=== PATIENT | female | born 1990 | race Caucasian/White ===

== ENCOUNTER 2021-05-23 09:16 | Emergency (ER) | payer MEDICAID, SELFPAY ==
[2021-05-23 09:24] VITALS: BP 96/68; PULSE 70; RESP 18; TEMP 36.2; O2SAT 100
--- NOTE | 2021-05-23 09:25 | ED.FEMALEGU ---
HPI - Female Genitourinary General Chief complaint: Vaginal Bleeding Stated complaint: pg bleed Time Seen by Provider: 05/23/21 09:19 Source: patient Mode of arrival: ambulatory Limitations: no limitations History of Present Illness HPI Narrative: Patient 31-year-old female who presents to the ED with report of vaginal bleeding. Patient reports she is currently around 6 weeks , with positive test at home last week. She has had light bleeding intermittently throughout her thus far, especially after intercourse. Over the past 3 days, she has had persistent light vaginal bleeding. She states she has been using a panty liner and has not required more than this for the bleeding, but does have bleeding every time she wipes. She also reports having daily nausea and intermittent lower abdominal cramping, which became worse today, prompting her evaluation to the ED. Patient was seen at [place] [facility] yesterday and had an ultrasound done which did show an intrauterine . Records are being requested for this. Patient states she was also told she had a UTI yesterday and was prescribed Macrobid. She picked it up from the pharmacy today but has not started this yet. She denies any urinary symptoms currently. She also denies any back pain, chest pain, shortness of breath, fever, chills, rectal bleeding. No complications with previous and , child born vaginally. Related Data Allergies Allergy/AdvReac Type Severity Reaction Status Date / Time No Known Allergies Allergy Verified 05/23/21 09:27 Review of Systems Review of Systems: CONSTITUTIONAL: Denies fever, chills. CARDIOVASCULAR: Denies chest pain. RESPIRATORY: Denies dyspnea. GASTROINTESTINAL: Reports lower ABD cramping, N/V. Denies rectal bleeding, diarrhea. GENITOURINARY: Reports vaginal bleeding. Denies dysuria or hematuria. MUSCULOSKELETAL: Denies back pain. NEUROLOGIC: Denies headache. All systems reviewed & are unremarkable except as noted in HPI and below PMFSH Past Medical History Medical History (Updated 05/23/21 @ 14:29 by Sugey Mcgarry PA-C) No pertinent past medical history Surgical History Surgical History (Updated 05/23/21 @ 14:29 by Sugey Mcgarry PA-C) No pertinent past surgical history Family History Family History (Updated 05/22/16 @ 23:56 by DOCTOR UNKNOWN) Father Family history of heart disease in male family member before age 55, Onset Age: 56 Patient's father is Social History Social History (Updated 05/23/21 @ 14:29 by Sugey Mcgarry PA-C) Smoking status: Never smoker Alcohol intake: never Exam Narrative: GENERAL: Well appearing, well-nourished, non-toxic, in no acute distress. HEAD: Normocephalic, atraumatic. NECK: Supple. No adenopathy, no masses. RESPIRATORY: Airway patent, respirations nonlabored. Clear to auscultation bilaterally, no rales, rhonchi, wheezing. CARDIOVASCULAR: Regular rate and rhythm without murmurs, rubs, or gallops. Peripheral pulses 2+ and equal bilaterally. ABDOMINAL: Soft, nontender, nondistended, no hepatosplenomegaly. Normoactive BS. PELVIC: External genitalia unremarkable. Mild erythema surrounding cervical os, which does not appear open. Minimal bleeding present. No clots. Normal physiologic discharge present. No significant CMT. MUSCULOSKELETAL: Moves all extremities. Strength/ROM intact without gross deformities or TTP. No edema. No calf tenderness. SKIN: Warm, dry, normal color. No rashes. NEURO: A&O X3. Speech clear. Cranial nerves II-XII grossly intact. Steady gait. No ataxic movements. PSYCHIATRIC: Appropriate mood and affect. Normal interaction. Course Consultations Consultation #1: Discussed case with Dr. Bennie DAMON target protection specialist. Recommended pelvic rest, antibiotics for UTI, and patient to call office to make follow-up appointment. Date: 05/23/21 Vital Signs Vital signs: Vital Signs Temperature 97.1 F L 05/23/21 09:24 Pulse
[2021-05-23 09:45] LABS: Basophils Percent Auto 0.6 % (0.2-1.2); Eosinophils Absolute Auto 0.2 K/mm3 (0-0.3); Eosinophils Percent Auto 2.4 % (0-4.4); Hemoglobin 12.5 g/dL (12.0-15.0); Immature Granulocyte Absolute 0.01 K/mm3 (0.00-0.031); Immature Granulocyte Percent A 0.1 % (0-0.5); Lymphocytes Absolute Auto 2.31 K/mm3 (0.9-3.2); Lymphocytes Percent Auto 34.2 % (18.3-44.2); Mean Corpuscular HGB Conc 32.9 g/dl (32-36); Mean Corpuscular Hemoglobin 30.5 pg (26-34); Mean Corpuscular Volume 92.7 fl (80-100); Mean Platelet Volume 11.5 fl (7.4-10.4); Monocytes Absolute Auto 0.6 K/mm3 (0.1-0.6); Monocytes Percent Auto 8.6 % (2.6-8.5); Neutrophils Absolute Auto 3.7 K/mm3 (1.3-6.7); Neutrophils Percent Auto 54.1 % (45.5-73.1); Platelet Count Result 255 k/mm3 (150-375); Red Cell Distribution Width 12.4 % (11.5-14.5); White Blood Count 6.8 K/mm3 (4.5-10.0)
[2021-05-23 09:59] LABS: Alanine Aminotransferase 14 U/L (4-35); Albumin Level 4.1 g/dL (3.5-5.1); Alkaline Phosphatase 79 U/L (38-126); Anion Gap 7 mmol/L (8-16); Aspartate Amino Transferase 19 U/L (14-36); Bilirubin,Total 0.3 mg/dL (0.2-1.3); Blood Urea Nitrogen 9 mg/dL (7-17); Calcium 8.7 mg/dL (8.4-10.2); Carbon Dioxide 23 mmol/L (22-30); Chloride 107 mmol/L (98-107); Estimated CRCL calculation 103 ml/min; Estimated Glomerular Filt Rate > 60; Glucose 96 mg/dL (65-110); Potassium 3.8 mmol/L (3.4-5.0); Sodium 137 mmol/L (137-145)
[2021-05-23 10:07] LABS: Add Urine Microscopic? YES; Appearance Urine Cloudy (Clear); Bilirubin Urine Negative (Negative); Blood Urine 3+ (Negative); Color Urine Amber (Yellow); Glucose Urine UA Negative (Negative); Ketones Urine Negative (Negative); Leukocyte Esterase Ur 3+ LEU/UL (Negative); Mucus Urine Moderate /lpf; Nitrate Urine Negative (Negative); Protein Urine Negative (Negative); Specific Grav Ur 1.023 (1.001-1.035); Squamous Epithelial Cell Urine Many /hpf (Few); Urobilinogen Urine Negative mg/dL (<2.0); WBC Urine >75 /hpf
[2021-05-23] MEDS: ONDANSETRON INJ 4 MG/2 ML VIAL IV PUSH (10:07)
[2021-05-23] MEDS: SODIUM CHLORIDE 0.9% IV 1,000 ML 999 ML IV CONT (10:08)
[2021-05-23 10:50] VITALS: BP 116/59; PULSE 66
[2021-05-23 10:58] VITALS: BP 104/58; PULSE 68
[2021-05-23 11:00] VITALS: BP 109/68; PULSE 67
[2021-05-23 13:23] VITALS: BP 115/76; PULSE 92; RESP 16; O2SAT 100
== END 2021-05-23 13:25 | disposition home or self-care (01) ==
PROVIDERS: Physician Assistant; Emergency Provider Emergency Medicine
DX: O20.0 Threatened abortion (principal); O26.891 Other specified pregnancy related conditions, first trimester; R82.71 Bacteriuria; Z3A.01 Less than 8 weeks gestation of pregnancy
CPT/HCPCS: 36415; 80053; 81001; 84702; 85025; 85461; 87086; 96361; 96374; 99284; J2405; J7030

== ENCOUNTER 2021-06-16 16:14 | Outpatient (CLI) | payer MEDICAID, SELFPAY ==
--- NOTE | ~2021-06-16 | US_ITS ---
EXAMINATION: US OB <= 14 weeks fetus DATE: 06/16/2021 17:24 INDICATION: Missed , first trimester TECHNIQUE: Real-time pelvic transabdominal and transvaginal ultrasound was performed. COMPARISON: None. FINDINGS: The uterus measures 10.5 x 6.7 x 8.9 cm. There is an intrauterine gestational sac. There i s a 12 mm x 3 mm hypoechoic area adjacent to the gestational sac. A yolk sac is identified. hea rt motion is identified measuring 166 beats per minute (bpm) by M-mode Doppler. The crown rump length measures 2.9 cm , which correlates with an estimated gestational age of 9 weeks and 5 day(s) ( +/-) 6 day(s). The right ovary measures 2.8 x 1.6 x 1.7 cm. The left ovary measures 3.2 x 1.5 x 1.3 cm. There is nor mal vascular flow in the ovaries. There is no free fluid in the pelvis. IMPRESSION: 1. Live intrauterine with an estimated gestational age of 9 weeks and 5 day(s) (+/-) 6 day( s) and an estimated delivery date of 01/14/2022. 2. Small subchorionic hematoma. Reviewed, dictated and finalized at location A. IMPRESSION: 1. Live intrauterine with an estimated gestational age of 9 weeks and 5 day(s) (+/-) 6 day(s) and an estimated delivery date of 01/14/2022. 2. Small subchorionic hematoma.
== END 2021-06-16 16:15 | disposition home or self-care (01) ==
PROVIDERS: Visit Provider Obstetrics & Gynecology
DX: O02.1 Missed abortion (principal); Z3A.09 9 weeks gestation of pregnancy
CPT/HCPCS: 76801

== ENCOUNTER 2021-07-25 18:17 | Emergency (ER) | payer OTHER, SELFPAY ==
[2021-07-25 18:24] VITALS: BP 125/58; PULSE 98; RESP 16; TEMP 36.5; O2SAT 100
[2021-07-25 20:55] VITALS: BP 123/76; PULSE 83; RESP 16; O2SAT 100
--- NOTE | 2021-07-25 21:09 | ED.FEMALEGU ---
HPI - Female Genitourinary General Chief complaint: Vaginal Bleeding Stated complaint: 16 wks vaginal bleeding Time Seen by Provider: 07/25/21 20:54 Source: patient History of Present Illness HPI Narrative: Patient presents with vaginal bleeding. For she has had some cramping and clots for the past couple days she was monitoring her symptoms but her symptoms were not getting better so she came to the ER tonight she is concerned about her child. She was seen a month ago for similar symptoms diagnosed with a subchorionic hemorrhage as well as a UTI. She recovered well from that encounter symptoms started 2 days ago. Denies any lightheadedness or dizziness denies any chest pain or shortness of breath denies any fevers, chills, nausea, vomiting denies any dysuria. Related Data Home Medications Medication Instructions Recorded Confirmed vitamins-iron fumarate 65 1 tablet PO DAILY 06/13/21 06/13/21 mg iron-folic acid 1 mg tablet Allergies Allergy/AdvReac Type Severity Reaction Status Date / Time No Known Allergies Allergy Verified 07/25/21 20:58 Review of Systems Review of Systems: CONSTITUTIONAL: Denies fever, chills, or sweats. EYES: Denies visual changes, redness, or discharge. ENT: Denies rhinorrhea, congestion, sore throat, or otalgia. CARDIOVASCULAR: Denies chest pain, palpitations, or edema. RESPIRATORY: Denies cough or dyspnea. GASTROINTESTINAL: Denies nausea, vomiting, or diarrhea. GENITOURINARY: Denies dysuria or hematuria. SKIN: Denies rash or itching. MUSCULOSKELETAL: Denies back pain, joint pain, or myalgia. NEUROLOGIC: Denies headache, numbness, dizziness, or weakness. PSYCHIATRIC: Denies anxiety or depression. All systems reviewed & are unremarkable except as noted in HPI and below PMFSH Past Medical History Medical History Bipolar disorder Depression No pertinent past medical history Surgical History Surgical History No pertinent past surgical history Family History Family History Father Family history of heart disease in male family member before age 55, Onset Age: 56 Patient's father is Social History Social History Smoking status: Former smoker Tobacco type: cigarettes Smoking end date: 05/14/21 Alcohol intake: never Substance use: former Substance use type: marijuana Last use: 05/14/2021 Additional living arrangements comments: 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 HEAD: Normocephalic, atraumatic. EYES: PERRLA and EOMI. ENT: Nares clear, no rhinorrhea or epistaxis. Mucous membranes moist. NECK: Supple. No masses. No JVD CHEST: Clear to auscultation. No respiratory distress. No wheezes rales or rhonchi HEART: Regular rate and rhythm. No murmur heard. Normal peripheral pulses. ABDOMEN: Soft, nontender, nondistended EXTREMITIES: Normal range of motion. No edema. SKIN: Warm, dry, no rash. NEURO: No focal deficits. Alert and oriented x3. PSYCH: Normal mood and affect. Course Reevaluation(s) Reevaluation #1: Patient was offered a pelvic exam, blood work, and UA for further evaluation of her symptoms. Patient reports she has blood work scheduled for Wednesday of next week. Patient feels as if she can have her test done then she also declined a pelvic exam. With a reassuring heart rate patient overall looks clinically well prior Rh status is positive and continued outpatient monitoring of her symptoms is reasonable she does have follow-up wit
[2021-07-25 21:23] VITALS: PULSE 74; RESP 16; O2SAT 100
== END 2021-07-25 21:24 | disposition home or self-care (01) ==
PROVIDERS: Emergency Provider Emergency Medicine
DX: O20.0 Threatened abortion (principal); Z3A.16 16 weeks gestation of pregnancy; Z87.891 Personal history of nicotine dependence
CPT/HCPCS: 99282

== ENCOUNTER 2021-09-09 12:22 | Outpatient (CLI) | payer OTHER, SELFPAY ==
[2021-09-09 12:39] LABS: Basophils Percent Auto 0.2 % (0.2-1.2); Eosinophils Absolute Auto 0.1 K/mm3 (0-0.3); Eosinophils Percent Auto 1.3 % (0-4.4); Hematocrit 33.6 % (37.0-47.0); Hemoglobin 10.9 g/dL (12.0-15.0); Immature Granulocyte Absolute 0.02 K/mm3 (0.00-0.031); Immature Granulocyte Percent A 0.2 % (0-0.5); Lymphocytes Percent Auto 20.4 % (18.3-44.2); Mean Corpuscular HGB Conc 32.4 g/dl (32-36); Mean Corpuscular Hemoglobin 29.7 pg (26-34); Mean Corpuscular Volume 91.6 fl (80-100); Mean Platelet Volume 11.2 fl (7.4-10.4); Monocytes Absolute Auto 0.5 K/mm3 (0.1-0.6); Monocytes Percent Auto 6.1 % (2.6-8.5); Neutrophils Percent Auto 71.8 % (45.5-73.1); Platelet Count Result 219 k/mm3 (150-375); Red Blood Count 3.67 M/mm3 (4.2-5.4); Red Cell Distribution Width 12.2 % (11.5-14.5); White Blood Count 8.3 K/mm3 (4.5-10.0)
[2021-09-09 13:30] LABS: HIV 1/2 Ab P24 Ag Result Negative (Negative)
[2021-09-09 14:00] LABS: Hepatitis B Surface Antigen Negative (Negative); Rubella IgG Antibody 20.9 IU/ML
[2021-09-10 10:22] LABS: Rapid Plasma Reagin Non-Reactive (NonReactive)
[2021-09-12 19:52] LABS: CMV IgG Antibody <0.60 U/mL (<0.60)
[2021-09-22 07:27] LABS: CF Result NEGATIVE (NEGATIVE); Ethnicity NG
== END 2021-09-09 12:23 | disposition home or self-care (01) ==
LOC: ANHLAB 12:23
PROVIDERS: Visit Provider Obstetrics & Gynecology
DX: Z34.90 Encounter for supervision of normal pregnancy, unspecified, unspecified trimester (principal); Z3A.00 Weeks of gestation of pregnancy not specified
CPT/HCPCS: 36415; 81220; 85025; 86592; 86644; 86703; 86747; 86762; 86787; 86850; 86900; 86901; 87086; 87088; 87340; G0432

== ENCOUNTER 2021-09-27 14:22 | Emergency (ER) | payer OTHER, SELFPAY ==
[2021-09-27 15:15] VITALS: BP 110/54; PULSE 107; RESP 16; TEMP 37.7; O2SAT 99
--- NOTE | 2021-09-27 15:25 | ED.URI ---
HPI - URI/Sore Throat General Chief Complaint: Upper Respiratory Infection Stated Complaint: uri Time Seen by Provider: 09/27/21 15:25 History of Present Illness HPI Narrative: Vanda Gage is a 31 yo female who is 25 weeks and reports an exposure to COVID. Her son was sick when he was returning from his her ex-'s house while he is recovered she is started developing congestion and fatigue she has upper back pain and is just not feeling well, throat is also sore-started yesterday Related Data Home Medications Medication Instructions Recorded Confirmed vitamins-iron fumarate 65 1 tablet PO DAILY 06/13/21 09/27/21 mg iron-folic acid 1 mg tablet lamotrigine 25 mg tablet 25 mg PO DAILY 09/27/21 09/27/21 Allergies Allergy/AdvReac Type Severity Reaction Status Date / Time No Known Allergies Allergy Verified 09/27/21 14:33 Review of Systems Review of Systems: CONSTITUTIONAL: Denies fever, chills, sweats. EYES: Denies visual changes, redness, discharge. ENT: Denies rhinorrhea, has congestion, has sore throat, bilateral otalgia. CARDIOVASCULAR: Denies chest pain, palpitations, edema. RESPIRATORY: Denies dyspnea, wheezing, cough GASTROINTESTINAL: Denies abdominal pain, nausea, vomiting, diarrhea. GENITOURINARY: Denies dysuria, hematuria, abnormal discharge SKIN: Denies rash or itching. NEUROLOGIC: Denies numbness, or focal weakness. PSYCHIATRIC: Denies anxiety or depression. 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 There is no relevant family history pertinent to the presenting complaint. Exam Narrative: GENERAL: This is a well-nourished, well-developed patient, in mild distress. Low-grade fever HEAD: normocephalic, atraumatic. EYES:Sclera clear/white. Vision is grossly intact. EARS: External ears normal, auditory canals erythema with right worse than the left and without drainage. Hearing grossly intact. NOSE: External nose normal with nasal discharge, nares without redness, no rhinorrhea. THROAT: Mucous membranes moist, posterior pharynx erythema NECK: Neck supple, non-tender CARDIOVASCULAR: Tachycardic rate and rhythm without murmurs, gallops, or rubs. RESPIRATORY: Clear to auscultation. Breath sounds equal bilaterally. No wheezes, rales, or rhonchi. GASTROINTESTINAL: Abdomen soft, non-tender, enlarged to appropriate size for 25-week SKIN: warm, intact with no suspicious lesions or rash, good texture and turgor. NEURO: awake, alert, and oriented to person, place and time. There were no obvious focal neurologic abnormalities. Steady gait EXTREMITIES: Normal range of motion. BACK: Nontender without deformity Course Course Emergency Course: Patient comes with sore throat and potential exposure to COVID Strep done- negative COVID done- rapid negative; sent f
[2021-09-27 19:02] LABS: SARS-CoV-2 RNA PCR Negative
== END 2021-09-27 16:00 | disposition home or self-care (01) ==
PROVIDERS: Emergency Provider Nurse Practitioner
DX: Z20.822 Contact with and (suspected) exposure to COVID-19 (principal); O99.512 Diseases of the respiratory system complicating pregnancy, second trimester; Z3A.25 25 weeks gestation of pregnancy; J02.9 Acute pharyngitis, unspecified; J34.89 Other specified disorders of nose and nasal sinuses; O90.89 Other complications of the puerperium, not elsewhere classified; R05.9 Cough, unspecified; O99.342 Other mental disorders complicating pregnancy, second trimester; F31.9 Bipolar disorder, unspecified
CPT/HCPCS: 87081; 87426; 87880; 99213; C9803; G0463; U0003; U0005

== ENCOUNTER 2021-11-22 09:39 | Outpatient (CLI) | payer OTHER, SELFPAY ==
[2021-11-22 11:00] LABS: Basophils Percent Auto 0.3 % (0.2-1.2); Eosinophils Absolute Auto 0.2 K/mm3 (0-0.3); Eosinophils Percent Auto 1.9 % (0-4.4); Hematocrit 33.2 % (37.0-47.0); Immature Granulocyte Absolute 0.05 K/mm3 (0.00-0.031); Immature Granulocyte Percent A 0.6 % (0-0.5); Lymphocytes Absolute Auto 2.14 K/mm3 (0.9-3.2); Lymphocytes Percent Auto 23.9 % (18.3-44.2); Mean Corpuscular HGB Conc 33.1 g/dl (32-36); Mean Corpuscular Hemoglobin 29.8 pg (26-34); Mean Platelet Volume 10.4 fl (7.4-10.4); Monocytes Absolute Auto 0.6 K/mm3 (0.1-0.6); Monocytes Percent Auto 6.1 % (2.6-8.5); Neutrophils Percent Auto 67.2 % (45.5-73.1); Platelet Count Result 244 k/mm3 (150-375); Red Blood Count 3.69 M/mm3 (4.2-5.4)
[2021-11-22 11:18] LABS: Glucose 1 Hour PP 50gm Dose 176 mg/dL
[2021-11-22 11:56] LABS: HIV 1/2 Ab P24 Ag Result Negative (Negative)
== END 2021-11-22 09:40 | disposition home or self-care (01) ==
PROVIDERS: Visit Provider Obstetrics & Gynecology
DX: Z34.90 Encounter for supervision of normal pregnancy, unspecified, unspecified trimester (principal); Z3A.00 Weeks of gestation of pregnancy not specified
CPT/HCPCS: 36415; 82947; 85025; 86703; G0432

== ENCOUNTER 2022-01-07 06:43 | Inpatient (IN) | payer OTHER, SELFPAY ==
[2022-01-07] VITALS (78 sets, daily range): BP systolic 81–137; BP diastolic 31–88; PULSE 25–191; RESP 16–18; TEMP 36.2–37.4; O2SAT 69–100
[2022-01-07] MEDS: LACTATED RINGERS 1,000 ML 125 ML IV CONT ×3 (07:32→11:31)
[2022-01-07] MEDS: OXYTOCIN 30 UNITS/NS 500 ML 30 UNITS/500 ML BAG IV CONT (07:34)
[2022-01-07 07:51] LABS: Basophils Percent Auto 0.3 % (0.2-1.2); Eosinophils Absolute Auto 0.1 K/mm3 (0-0.3); Eosinophils Percent Auto 0.5 % (0-4.4); Hematocrit 33.5 % (37.0-47.0); Hemoglobin 10.8 g/dL (12.0-15.0); Immature Granulocyte Absolute 0.06 K/mm3 (0.00-0.031); Immature Granulocyte Percent A 0.6 % (0-0.5); Lymphocytes Absolute Auto 2.05 K/mm3 (0.9-3.2); Lymphocytes Percent Auto 20.5 % (18.3-44.2); Mean Corpuscular HGB Conc 32.2 g/dl (32-36); Mean Corpuscular Hemoglobin 29.1 pg (26-34); Mean Corpuscular Volume 90.3 fl (80-100); Mean Platelet Volume 11.7 fl (7.4-10.4); Monocytes Absolute Auto 0.6 K/mm3 (0.1-0.6); Monocytes Percent Auto 5.8 % (2.6-8.5); Neutrophils Absolute Auto 7.3 K/mm3 (1.3-6.7); Neutrophils Percent Auto 72.3 % (45.5-73.1); Platelet Count Result 176 k/mm3 (150-375); Red Blood Count 3.71 M/mm3 (4.2-5.4); Red Cell Distribution Width 13.8 % (11.5-14.5)
--- NOTE | 2022-01-07 08:03 | LDADM ---
This patient, Vanda Gage, was admitted to Labor/Delivery/Recovery 109 on 01/07/22 at 06:43. Plans for labor, pain management and were discussed with patient. Patient/family oriented to hospital policies and general routines including ID bracelet, bed and alarms, visiting hours, pain management, procedures, bathroom and other care routines, personal items, smoking policy, room service/diet and guest tray routines, security routines, and visiting hours. Patient/Family are encouraged to report perceived risks to care and to ask questions if they do not understand what they are told or what they should do. See OBIX for further documentation.
--- NOTE | 2022-01-07 08:56 | WPDANESEPP ---
Anes - Eval Pre Procedure Procedure: labor epidural Date/Time: 01/07/22 08:56 Pre Op Diagnosis: IOL Patient Data Age: 31 Gender: F Height: Weight: Last Vital Signs Pulse 92 01/07/22 08:54 BP 96/52 L 01/07/22 08:54 Pulse Ox 100 01/07/22 08:54 O2 Del Method Room Air 01/07/22 07:30 Allergies Allergy/AdvReac Type Severity Reaction Status Date / Time No Known Allergies Allergy Verified 01/06/22 17:13 Home Medications Medication Instructions Recorded Confirmed Type vitamins-iron fumarate 65 1 tablet PO DAILY 06/13/21 01/06/22 History mg iron-folic acid 1 mg tablet ferrous sulfate 325 mg (65 mg 325 mg PO DAILY #90 tabs 09/09/21 01/06/22 Rx iron) tablet Laboratory Tests 01/07/22 01/07/22 01/07/22 07:23 07:23 07:23 WBC 10.0 K/mm3 K/mm3 (4.5-10.0) RBC 3.71 M/mm3 L M/mm3 (4.2-5.4) Hgb 10.8 g/dL L g/dL (12.0-15.0) Hct 33.5 % L % (37.0-47.0) MCV 90.3 fl fl (80-100) MCH 29.1 pg pg (26-34) MCHC 32.2 g/dl g/dl (32-36) RDW 13.8 % % (11.5-14.5) Plt Count 176 k/mm3 k/mm3 (150-375) MPV 11.7 fl H fl (7.4-10.4) Immature Gran % (Auto) 0.6 % H % (0-0.5) Neut % (Auto) 72.3 % % (45.5-73.1) Lymph % (Auto) 20.5 % % (18.3-44.2) [place] % (Auto) 5.8 % % (2.6-8.5) Eos % (Auto) 0.5 % % (0-4.4) Baso % (Auto) 0.3 % % (0.2-1.2) Lymph # (Auto) 2.05 K/mm3 K/mm3 (0.9-3.2) [place] # (Auto) 0.6 K/mm3 K/mm3 (0.1-0.6) Eos # (Auto) 0.1 K/mm3 K/mm3 (0-0.3) Baso # (Auto) 0.0 K/mm3 K/mm3 (0.0-0.1) Abs Immat Gran (auto) 0.06 K/mm3 H K/mm3 (0.00-0.031) Absolute Neuts (auto) 7.3 K/mm3 H K/mm3 (1.3-6.7) Absolute Nucleated RBC 0.0 K/mm3 K/mm3 (0.0-0.012) Nucleated RBC % 0.0 % % (0.0-0.2) RPR Pending Blood Type O Positive Antibody Screen Negative Patient hx anesthesia problems: none Family hx anesthesia problems: none Results Review: All pre-operative results and documents have been reviewed as part of the pre-operative evaluation. [facility] Past Medical History Medical History (Updated 11/25/21 @ 17:13 by Taylor Jacinto [facility]) Abnormal glucose tolerance in Bipolar disorder Depression No pertinent past medical history Surgical History Surgical History No pertinent past surgical history Family History Family History Father Family history of heart disease in male family member before age 55, Onset Age: 56 Patient's father is Social History Social History Smoking status: Former smoker Tobacco type: cigarettes Smoking end date: 05/14/21 Alcohol intake: never Substance use: former Substance use type: marijuana Last use: 05/14/2021 Additional living arrangements comments: 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
[2022-01-07 10:17] LABS: Glucose Point of Care 70 mg/dl (65-105)
[2022-01-07] MEDS: CALCIUM CARBONATE (TUMS) 500 MG (200 MG ELEMENTAL) PO (11:28)
--- NOTE | 2022-01-07 12:54 | P.PCNOB_ITS ---
OB - Delivery Note Procedure Induction method: AROM and Per Pitocin Protocol Delivery monitor: External FHT and External Uterine Route of delivery: Episiotomy description: None Laceration Description: Vaginal (Bilateral) Delivery repair: chromic Specimen: No Quantitative Blood Loss (ml): 350 Anesthesia type: Epidural Disposition: Floor Complications: none Narrative: patient prepped in usual manner for this procedure. Maternal expulsive efforts readily delivered vertex with nuchal cord noted and readily reduced. Rest baby was delivered with cord clamped and cut and the rest the placenta delivered as well. Uterus was well contracted. Cervix vagina vulva were not inspected with bilateral vaginal wall lacerations noted. These were both approximated using 2-0 chromic in a running interlocking manner with good approximation of tissue and hemostasis achieved. At this point procedure was considered terminated with immediate postoperative condition of mother baby both excellent. [place] Baby Weeks of gestation at delivery: 39 Infant gender: Male Weight (pounds): 8 Weight (ounces): 1 presentation: vertex Placenta delivery description: Spontaneous Cord Vessel Description: 3 Vessels and Nuchal Cord score one minute: 9 score five minutes: 9 AMG Delivery Billing Delivery Delivery: Delivery Charge
--- NOTE | 2022-01-07 12:54 | WPDHPUPDATE1 ---
History and Physical Update Update Date/Time: 01/07/22 12:54 History and Physical has been reviewed, including an updated exam of the patient. There are NO changes in the patient's condition. Risks, benefits, and alternatives have been discussed and questions answered. Patient agrees to proceed with procedure.
--- NOTE | 2022-01-07 12:54 | WPDOBADMIT ---
Obstetrics - Admit Note Admission Note: record reviewed. No pertinent additions to the history and/or any subsequent changes in the physical findings that are not consistent with the expected course of the were found. Additions to the history and/or subsequent changes in the physical findings follow. None.
[2022-01-07] MEDS: IBUPROFEN 600 MG TABLET PO ×2 (14:47→23:07)
[2022-01-07] MEDS: BENZOCAINE 20% AER SPR (*SP) 56 GM CAN 1 SPRAY TOPICAL (14:48)
[2022-01-07] MEDS: WITCH HAZEL 40 PADS 1 PAD TOPICAL (14:48)
--- NOTE | 2022-01-07 15:40 | OBPPTRN ---
Patient transferred to post room # 290 via wheelchair. Support person present. Oriented to unit, room, information board, rooming in, admission packet and security measures. Patient verbalizes understanding.
[2022-01-08 03:56] VITALS: BP 99/53; PULSE 81; RESP 18; TEMP 36.7; O2SAT 99
[2022-01-08 04:32] LABS: Hematocrit 31.8 % (37.0-47.0); Hemoglobin 10.1 g/dL (12.0-15.0)
[2022-01-08 08:00] VITALS: BP 134/74; PULSE 81; RESP 18; TEMP 36.2; O2SAT 96
[2022-01-08] MEDS: TETANUS,DIPHTHERIA,AC PERTUSSIS ADULT (0.5 ML) BOOSTRIX IM (08:30)
[2022-01-08] MEDS: MULTIVIT/MIN/PREN/FOL AC/IRON TABLET 1 TAB PO (08:30)
--- NOTE | 2022-01-08 10:13 | PM.OBDSVD ---
DS: Admitting Diagnosis Discharge Date 01/08/2022 Admitting Diagnosis OB - DS: Summary OB Procedures : None OB Procedures Intrapartum: Spontaneous Vag Delivery OB Procedures: : None Time Spent with Patient Time attestation: Total time spent providing and/or coordinating discharge services: DS: Data Data Completed and Pending Labs on day of discharge: Labs from last 24 hours 01/08/22 01/07/22 03:19 10:14 Hgb 10.1 L Hct 31.8 L POC Capillary Glucose 70 Discharge Plan Discharge Discharging Clinician: Yaniv Calderón Patient Disposition: Home, Self-Care Activity: as tolerated Diet: as tolerated Patient Instructions: Antibiotic Form Stand Alone Forms: General Discharge Information Follow-up/Referrals: Yaniv Calderón MD [Physician] - 3 Weeks Discharge Medications: New ibuprofen 600 mg Tablet 600 mg PO Q6H PRN (Reason: Cramping) Qty: 30 0RF Continued vit-iron fum-folic ac 65 mg iron- 1 mg tablet 1 tablet PO DAILY ferrous sulfate 325 mg (65 mg iron) tablet 325 mg PO DAILY Qty: 90 2RF Rx Instructions: can take any iron that insurance will cover Date of admission: 01/07/22 06:43 Primary Care Provider: PHYSICIAN,WATER CONSERVATION SPECIALIST Admitting Provider: Yaniv Calderón Attending physician on admission: Yaniv Calderón Condition: Stable
--- NOTE | 2022-01-08 10:51 | WPDANLDPN2 ---
Anes-Prog Note L&D Date/Time: 01/08/22 10:51 Comfortable throughout: labor and delivery Neuraxial method: epidural Epidural/Spinal procedure site: clean & non-tender Neuro status: Neuro function grossly intact. Cardiovascular status: normal Respiratory status: normal Airway patency: baseline Mental status: baseline Post-Op hydration status: normal Vital Signs: Last Vital Signs Temp 36.2 C L 01/08/22 08:00 Pulse 81 01/08/22 08:00 Resp 18 01/08/22 08:00 BP 134/74 01/08/22 08:00 Pulse Ox 96 01/08/22 08:00 O2 Del Method Room Air 01/08/22 08:34 Pain score (VAS): 02/24 I/O: Intake & Output 01/07/22 01/08/22 01/08/22 23:59 07:59 15:59 Intake Total 1000 Balance 1000 Post-procedural complaints: none Patient feedback: Patient satisfied with anesthetic care.
[2022-01-08 11:27] VITALS: BP 142/66; PULSE 98; RESP 18; TEMP 36.9; O2SAT 99
[2022-01-08] MEDS: IBUPROFEN 600 MG TABLET PO (11:27)
[2022-01-09 09:04] LABS: Rapid Plasma Reagin Non-Reactive (NonReactive)
[2022-01-09 09:33] VITALS: BP 119/64; PULSE 88; RESP 20; TEMP 36.7; O2SAT 98
== END 2022-01-08 14:30 | disposition home or self-care (01) | DRG 560 ==
LOC: ANHLDR 06:46 → ANHOB2 16:51
PROVIDERS: Admitting Provider Obstetrics & Gynecology; Visit Provider Obstetrics & Gynecology
DX: O69.81X0 Labor and delivery complicated by cord around neck, without compression, not applicable or unspecified (principal); O71.4 Obstetric high vaginal laceration alone; Z37.0 Single live birth; Z3A.39 39 weeks gestation of pregnancy; O99.814 Abnormal glucose complicating childbirth
CPT/HCPCS: 36415; 82948; 85014; 85018; 85025; 86592; 86850; 86900; 86901; 90715; A9270; J2590; J2795; J7120

== ENCOUNTER 2022-03-04 11:37 | Emergency (ER) | payer OTHER, SELFPAY ==
--- NOTE | ~2022-03-04 | XR_ITS ---
Clinical Indication: Cough PA and lateral views of the chest: Comparison: None Findings: The lungs are clear, without evidence of focal consolidation or pleural effusion. Cardiome diastinal silhouette is within normal limits. Bones and soft tissues are unremarkable. Impression: Normal chest. Reviewed, dictated and finalized at location . 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
--- NOTE | 2022-03-04 11:41 | ED.URI ---
HPI - URI/Sore Throat General Chief Complaint: Upper Respiratory Infection Stated Complaint: Cough Time Seen by Provider: 03/04/22 11:45 Source: patient Mode of arrival: ambulatory Limitations: no limitations History of Present Illness HPI Narrative: Vanda is a 32-year-old female patient presenting to the clinic today with complaints of a productive cough with green/ brown phlegm x2 days. Also notes that she feels short of breath. She denies any fever or chills. MD elicited complaint: cough ( Greenish brown phlegm) and other ( shortness of breath) Related Data Allergies Allergy/AdvReac Type Severity Reaction Status Date / Time No Known Allergies Allergy Verified 03/04/22 11:43 Review of Systems Review of Systems: Pertinent positives per HPI. Patient denies any fever, chills, rash, headache, visual changes, dizziness, chest pain, palpitations, nausea, vomiting, diarrhea, constipation, abdominal pain, or any urinary issues. 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 There is no relevant family history pertinent to the patient complaint. Exam Narrative: General: Well-developed, obese, in no apparent distress Head: Normocephalic, atraumatic Eyes: Pupils equally round and reactive to light bilaterally, EOM intact, sclera and conjunctive clear, no discharge, lids normal Ears: TMs intact and clear, ear canals clear, no drainage, grossly hearing normal. Nose: Nares patent, clear nasal discharge, no inflammation, no sinus tenderness. Mouth: Oral pharynx without lesions or masses, good dentition, MMM. Neck: Supple, trachea midline, no enlargement of anterior or posterior cervical nodes, no thyroid masses or goiter palpable. Cardio: Regular rate and rhythm, s1 and s2 normal, no murmur appreciated. Resp: Inspiratory and expiratory wheezing with decreased air flow, no rhonchi, rales, or rubs Course Course Emergency Course: Portions of this record may have been created with voice recognition software. Level of Care: Express Care Visit Vital Signs Vital signs: Vital Signs Temperature 37.0 C 03/04/22 11:45 Pulse Rate 71 03/04/22 11:45 Respiratory Rate 16 03/04/22 11:45 Blood Pressure 128/80 03/04/22 11:45 Pulse Oximetry 99 03/04/22 11:45 Oxygen Delivery Room Air 03/04/22 11:45 Temperature 37.0 C 03/04/22 11:45 Pulse Rate 71 03/04/22 11:45 Respiratory Rate 16 03/04/22 11:45 Blood Pressure 128/80 03/04/22 11:45 Pulse Oximetry 99 03/04/22 11:45 Oxygen Delivery Room Air 03/04/22 11:45 Vital signs reviewed MDM - URI/Sore Throat MDM Narrative Medical decision making narrative: At the time of visit patient is resting comfortably on exam table. Patient has i
[2022-03-04 11:45] VITALS: BP 128/80; PULSE 71; RESP 16; TEMP 37; O2SAT 99
[2022-03-04] MEDS: IPRATROPIUM BR 0.02% INH SOLN 0.5 MG/2.5 ML VIAL INHALATION (11:59)
[2022-03-04] MEDS: ALBUTEROL SULFATE NEB 2.5 MG/3 ML INH INHALATION (11:59)
== END 2022-03-04 12:38 | disposition home or self-care (01) ==
PROVIDERS: Emergency Provider Nurse Practitioner Family
DX: J40 Bronchitis, not specified as acute or chronic (principal); Z87.891 Personal history of nicotine dependence
CPT/HCPCS: 71046; 94640; 99213; G0463

== ENCOUNTER 2022-12-08 09:01 | Emergency (ER) | payer OTHER, SELFPAY ==
[2022-12-08 09:14] VITALS: BP 113/68; PULSE 76; RESP 16; TEMP 36.8; O2SAT 99
--- NOTE | 2022-12-08 09:29 | ED.GENADULT ---
HPI - General Adult General Chief complaint: Extremity Injury, Upper Stated complaint: Right Neck/Shoulder Pain Time Seen by Provider: 12/08/22 09:29 Source: patient, RN notes reviewed and old records reviewed Mode of arrival: ambulatory Limitations: no limitations History of Present Illness HPI narrative: 32-year-old female presents to the [facility] with complaints of pain. States that she fell Oct 15, 9 days ago. Pain continues to the right upper back Pain along the trapezius muscle, upper scapular area. Denies midline tenderness. Full range of motion of bilateral shoulders. No bruising or swelling noted to the area. No tenderness to the shoulder. No clavicle pain. Denies chest pain or shortness of breath. Onset (ago): day(s) (9) Related Data Home Medications Medication Instructions Recorded Confirmed fluoxetine 20 mg capsule mg 12/08/22 Allergies Allergy/AdvReac Type Severity Reaction Status Date / Time No Known Allergies Allergy Verified 12/08/22 09:19 Review of Systems Review of Systems: All systems reviewed & are unremarkable except as noted in HPI and below Constitutional: Constitutional: Reports no additional constitutional complaints Eyes: Eyes: Reports no additional eye complaints ENT: Reports system reviewed and no additional complaints, except as documented Cardiovascular: Cardiovascular: Reports no additional cardiovascular complaints, Denies chest pain and Denies dyspnea Respiratory: Respiratory: Reports no additional respiratory complaints, Denies chest congestion, Denies cough and Denies dyspnea Gastrointestinal: Gastrointestinal: Reports no additional gastrointestinal complaints, Denies abdominal pain, Denies nausea and Denies vomiting Musculoskeletal: Musculoskeletal: Reports as per HPI and Reports back pain Integumentary/Breasts: Skin/Breast: Reports system reviewed and no additional complaints, except as docu Neurologic: Reports system reviewed and no additional complaints, except as documented Psychiatric: Psychiatric: Reports no additional psychiatric complaints Allergic/Immunologic: Allergic/Immunologic: Reports no additional allergic/immunologic complaints [facility] Past Medical History Medical History Abnormal glucose tolerance in Bipolar disorder Depression No pertinent past medical history Surgical History Surgical History No pertinent past surgical history Family History Family History Father Family history of heart disease in male family member before age 55, Onset Age: 56 Patient's father is Social History Social History Smoking status: Former smoker Tobacco type: cigarettes Smoking end date: 05/14/21 Alcohol intake: never Substance use: former Substance use type: marijuana Last use: 05/14/2021 Living arrangements: other Additional living arrangements comments: Occupation/Education: other 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 There is no relevant family history pertinent to the patient complaint. Exam Const: General: cooperative, healthy appearing, comfortable, no acute distress, well developed, alert and well nourished Nutritional Appearance: well nourished and obese Orientation/consciousness: patient oriented x3 Limitations: no limitations HENMT: Head: normal to inspection Ears: hearing grossly normal bilaterally and external ears normal Face/Nose/Sinus:
== END 2022-12-08 09:55 | disposition home or self-care (01) ==
PROVIDERS: Emergency Provider Nurse Practitioner
DX: S29.012A Strain of muscle and tendon of back wall of thorax, initial encounter (principal); W19.XXXA Unspecified fall, initial encounter; F32.A Depression, unspecified; Z87.891 Personal history of nicotine dependence
CPT/HCPCS: 99213; G0463

== ENCOUNTER 2023-08-18 03:04 | Emergency (ER) | payer OTHER, SELFPAY ==
[2023-08-18] VITALS (25 sets, daily range): BP systolic 110–149; BP diastolic 56–128; PULSE 60–89; RESP 12–28; TEMP 36.3; O2SAT 96–100
--- NOTE | ~2023-08-18 | US_ITS ---
EXAMINATION: US OB <=14 wk fetus w TV DATE: 08/18/2023 08:32 INDICATION: Abdominal pain and positive , presumptively first trimester. TECHNIQUE: Real-time pelvic ultrasound utilizing both a transvaginal and transabdominal probe was pe rformed. The interpreting radiologist was not present for the study. COMPARISON: None. FINDINGS: The uterus measures 12.3 x 4.5 x 6.6 cm. 5 mm nabothian cyst at the cervix. There is an intrauterine gestational sac with double decidual sign and suggestion of a tiny subtle yolk sac. No pole nell ntified likely due to early stage of . The sac diameter measures 7.6 mm, which correlates wi th an estimated gestational age of 5 weeks and 4 days. The right ovary measures 2.4 x 2.3 x 2.2 exclusive of a 1.9 cm anechoic right ovarian cyst. Vascular flow seen on the ovary which appears to outline a subtle 1.6 cm hypoechoic likely corpus luteum cyst. The left ovary measures 2.0 x 1.9 x 1.6 cm. Pressures was also identified in the left ovary on color Doppler. There is no free fluid in the pelvis. IMPRESSION: 1. Single intrauterine gestational sac with no discernible pole most likely due to early stage of although differential includes failed . Correlate with serial beta-hCG levels. 2. Gestational age by ultrasound of 5 weeks 5 day(s) +/- 4 day(s) with ultrasound estimated date of delivery (HAL) of 04/15/2024. Reviewed, dictated and finalized at location B. IMPRESSION: 1. Single intrauterine gestational sac with no discernible pole most like ly due to early stage of although differential includes failed pregna ncy. Correlate with serial beta-hCG levels. 2. Gestational age by ultrasound of 5 weeks 5 day(s) +/- 4 day(s) with ultraso und estimated date of delivery (HAL) of 04/15/2024.
--- NOTE | ~2023-08-18 | US_ITS ---
EXAMINATION: US renal BI DATE: 08/18/2023 08:25 INDICATION: Flank pain. Hematuria. TECHNIQUE: Multiple ultrasound grayscale images of the kidneys were obtained. COMPARISON: None. FINDINGS: The right kidney measures 10.1 x 5.3 x 5.1 cm. The left kidney measures 10.5 x 4.7 x 5.3 cm. The kidn eys demonstrate normal parenchymal echogenicity. There is no hydronephrosis. The bladder is normal. IMPRESSION: 1. Normal kidneys. No hydronephrosis. Reviewed, dictated and finalized at location A.
--- NOTE | 2023-08-18 03:14 | ECG_ITS ---
Test Date: 2023-08-18 03:14:55 Measurements Intervals [place] Rate: 74 P: 54 ME: 154 QRS: 31 QRSD: 125 T: 33 QT: 407 QTc: 454 Interpretive Statements SINUS RHYTHM INTRAVENTRICULAR CONDUCTION DELAY BORDERLINE ECG No previous ECG available for comparison Electronically Signed On 08-18-2023 06:32:30 CDT by Chris Loja D.O.
--- NOTE | 2023-08-18 03:15 | ED.ABDPAIN ---
HPI - Abdominal Pain General Chief Complaint: Abdominal Pain <Michelle Diaz MD - Last Filed: 08/20/23 00:34> Stated Complaint: n/v <Michelle Diaz MD - Last Filed: 08/20/23 00:34> Time Seen by Provider: 08/18/23 03:06 <Michelle Diaz MD - Last Filed: 08/20/23 00:34> History of Present Illness HPI narrative: Patient is a 33-year-old female with history of depression, bipolar here with abdominal pain and flank pain. Patient states her symptoms began yesterday morning. She noted some right-sided lower back pain as well as nausea, vomiting, anterior abdominal pain. She states that the pain was able to self resolve and she was able to eat throughout the day yesterday. Her symptoms began again around 130 this morning. She endorsed lower abdominal pain as well as left-sided flank pain, nausea and vomiting. Since arriving to the ER she did have a large bowel movement and notes that her abdominal pain has largely subsided. She denies any fever or chills. She denies any cough or congestion. No chest pain. No prior history of abdominal surgeries. No prior nephrolithiasis or UTI per patient. She states that her last menstrual period was about a month ago and is due to start her cycle any time now. <Michelle Diaz MD - Last Filed: 08/20/23 00:34> Related Data Home Medications: Home Medications Medication Instructions Recorded Confirmed fluoxetine 20 mg capsule mg 12/08/22 <Michelle Diaz MD - Last Filed: 08/20/23 00:34> Allergies/Adverse Reactions: Allergies Allergy/AdvReac Type Severity Reaction Status Date / Time No Known Allergies Allergy Verified 12/08/22 09:19 <Michelle Diaz MD - Last Filed: 08/20/23 00:34> Review of Systems Review of Systems: All systems reviewed & are unremarkable except as noted in HPI and below <Michelle Diaz MD - Last Filed: 08/20/23 00:34> PMFSH Past Medical History Medical History: Medical History Abnormal glucose tolerance in Bipolar disorder Depression No pertinent past medical history <Michelle Diaz MD - Last Filed: 08/20/23 00:34> Surgical History Surgical History: Surgical History No pertinent past surgical history <Michelle Diaz MD - Last Filed: 08/20/23 00:34> Family History Family History: Family History Father Family history of heart disease in male family member before age 55, Onset Age: 56 Patient's father is <Michelle Diaz MD - Last Filed: 08/20/23 00:34> Social History Social History: Social History Smoking status: Former smoker Tobacco type: cigarettes Smoking end date: 05/14/21 Alcohol intake: never Substance use: former Substance use type: marijuana Last use: 05/14/2021 Living arrangements: other Additional living arrangements comments: Occupation/Education: other 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 HEAD: Normocephalic, atraumatic. EYES: PERRLA and EOMI. ENT: Nares clear. Mucous membranes moist. NECK: Supple. CHEST: Clear to auscultation. No respiratory distress. HEART: Regular rate and rhythm. Normal peripheral pulses. ABDOMEN: Soft, nontender, nondistended. No CVA tenderness bilaterally EXTREMITIES: Normal range of motion. No edema. SKIN: Warm, dry, no rash. NEURO: No focal deficits. Alert and oriented x3. PSYCH: Normal mood and affect. <Michelle Diaz MD - Last Filed: 08/20/23 00:34> Course
[2023-08-18] MEDS: MORPHINE SULFATE (*CRX) 4 MG/ML INJ IV PUSH (03:25)
[2023-08-18] MEDS: ONDANSETRON INJ 4 MG/2 ML VIAL IV PUSH (03:26)
[2023-08-18 03:39] LABS: Basophils Percent Auto 0.3 % (0.2-1.2); Eosinophils Absolute Auto 0.2 K/mm3 (0-0.3); Eosinophils Percent Auto 1.9 % (0-4.4); Hematocrit 37.6 % (37.0-47.0); Hemoglobin 12.8 g/dL (12.0-15.0); Immature Granulocyte Absolute 0.03 K/mm3 (0.00-0.031); Immature Granulocyte Percent A 0.3 % (0-0.5); Lymphocytes Absolute Auto 2.77 K/mm3 (0.9-3.2); Lymphocytes Percent Auto 28.9 % (18.3-44.2); Mean Corpuscular Hemoglobin 29.4 pg (26-34); Mean Corpuscular Volume 86.4 fl (80-100); Mean Platelet Volume 11.7 fl (7.4-10.4); Monocytes Absolute Auto 0.7 K/mm3 (0.1-0.6); Monocytes Percent Auto 6.9 % (2.6-8.5); Neutrophils Absolute Auto 5.9 K/mm3 (1.3-6.7); Neutrophils Percent Auto 61.7 % (45.5-73.1); Platelet Count Result 285 k/mm3 (150-375); Red Blood Count 4.35 M/mm3 (4.2-5.4); Red Cell Distribution Width 13.3 % (11.5-14.5); White Blood Count 9.6 K/mm3 (4.5-10.0)
[2023-08-18 03:48] LABS: Alanine Aminotransferase 22 U/L (6-35); Albumin Level 4.6 g/dL (3.5-5.1); Alkaline Phosphatase 112 U/L (38-126); Anion Gap 13 mmol/L (4-12); Aspartate Amino Transferase 22 U/L (14-36); Bilirubin,Total 0.4 mg/dL (0.2-1.3); Blood Urea Nitrogen 10 mg/dL (7-17); Calcium 9.5 mg/dL (8.4-10.2); Carbon Dioxide 19 mmol/L (22-30); Chloride 106 mmol/L (98-107); Estimated CRCL calculation 95 ml/min; Estimated Glomerular Filt Rate > 60; Glucose 136 mg/dL (65-110); Lipase 66 U/L (23-300); Potassium 3.1 mmol/L (3.4-5.0); Sodium 138 mmol/L (137-145)
[2023-08-18] MEDS: LACTATED RINGERS 1,000 ML 999 ML IV CONT (03:54)
[2023-08-18 04:19] LABS: Appearance Urine Cloudy (Clear); Bacteria Urine Rare /hpf; Bilirubin Urine Negative (Negative); Blood Urine 3+ (Negative); Color Urine Yellow (Yellow); Glucose Urine UA Negative (Negative); Ketones Urine 3+ mg/dL (Negative); Leukocyte Esterase Ur 1+ LEU/UL (Negative); Nitrate Urine Negative (Negative); Non Pathogenic Casts 0-2; Protein Urine Trace mg/dL (Negative); RBC Urine >100 /hpf (0-2); Specific Grav Ur 1.015 (1.001-1.035); Squamous Epithelial Cell Urine Occasional /hpf (Few)
[2023-08-18 04:38] LABS: Add Urine Microscopic? YES
[2023-08-18 04:53] LABS: Pregnancy On Board Control Positive; Urine Pregnancy Test Positive
--- NOTE | 2023-08-18 07:29 | PC.NURSE ---
Pt to u/s via w/c at this time.
== END 2023-08-18 09:24 | disposition home or self-care (01) ==
PROVIDERS: Emergency Provider Student in an Organized Health Care Education/Training Program
DX: O23.41 Unspecified infection of urinary tract in pregnancy, first trimester (principal); N39.0 Urinary tract infection, site not specified; Z3A.01 Less than 8 weeks gestation of pregnancy; Z87.891 Personal history of nicotine dependence
CPT/HCPCS: 36415; 76775; 76801; 76817; 80053; 81001; 81025; 83690; 84702; 85025; 86850; 86900; 86901; 87086; 87088; 93005; 96361; 96365; 96375; 99284; J0696; J2270; J2405; J7120

== ENCOUNTER 2023-09-11 19:50 | Emergency (ER) | payer OTHER, SELFPAY ==
[2023-09-11 20:06] VITALS: BP 126/63; PULSE 77; RESP 15; TEMP 36.9; O2SAT 100
[2023-09-11 21:00] VITALS: BP 125/51; PULSE 89; RESP 16; O2SAT 99
--- NOTE | 2023-09-11 21:08 | ED.PREGNANCY ---
HPI - General Chief complaint: Vaginal Bleeding Stated complaint: vaginal bleeding, 8-9 weeks Time Seen by Provider: 09/11/23 21:07 Source: patient Mode of arrival: ambulatory Limitations: no limitations History of Present Illness HPI Narrative: Vanda is a 33-year-old female patient presenting to the ER today with complaints of vaginal bleeding during . She reports she is about 9 weeks . Was seen on August 19 and had a ultrasound completed that showed that she was about 5 weeks and 5 days +/-4 days. She seen Dr. Calderón on August 31 and he plans to do a repeat US next week. she reports she has filled 1 pad with blood this morning however the bleeding has slowed down. Did notice some clots. States she did wipe while in the emergency room after urinating and noticed some blood on the tissue paper. . Related Data Allergies Allergy/AdvReac Type Severity Reaction Status Date / Time No Known Allergies Allergy Verified 09/11/23 19:51 Review of Systems Review of Systems: Pertinent positives per HPI. Patient denies any fever, chills, rash, headache, visual changes, dizziness, cough, runny nose, sore throat, shortness of breath, chest pain, palpitations, nausea, vomiting, diarrhea, constipation, or any urinary issues. [facility] Past Medical History Medical History Abnormal glucose tolerance in Bipolar disorder Depression No pertinent past medical history Threatened Surgical History Surgical History No pertinent past surgical history Family History Family History Father Family history of heart disease in male family member before age 55, Onset Age: 56 Patient's father is Social History Social History Smoking status: Former smoker Tobacco type: cigarettes Second hand tobacco smoke exposure: No Smoking end date: 05/14/21 Alcohol intake: never Substance use: former Substance use type: marijuana Last use: 05/14/2021 Do You Feel Safe in your Home?: Yes Lack of Transportation: No Lack of Food: Sometimes True Current Housing: I Have Housing Concerned About Future Housing: No Difficulty Paying Gas/Electric Bills: YES Difficulty Paying for Meds: No Currently Unemployed: No Education: Associate Degree Difficulty w/ Childcare or Family Care: No Living arrangements: other Additional living arrangements comments: now engaged Occupation/Education: occupation 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 There is no relevant family history pertinent to the patient complaint. Exam Narrative: General: Well-developed, morbidly obese, in no apparent distress Head: Normocephalic, atraumatic. Cardio: Regular rate and rhythm, s1 and s2 normal, no murmur appreciated. Resp: Clear to auscultation bilaterally, no rhonchi, rales, wheezing or rubs. Abdomen: Soft, pliable, bowel sounds present in all quadrants, non-tender to palpation, no CVAT tenderness. : Pelvic exam performed with ( Susan RN) at bedside. Verbal consent obtained from patient. Normal external female genitalia without lesions or masses, Urinary meatus: patent without discharge, Vagina: No lesions, masses, or discharge, Cervix: pink without mass, lesions, scant bloody discharge around the cervical os Course Course Emergency Course: Portions of this record may have been created with voice
[2023-09-11 21:40] VITALS: BP 130/69; PULSE 78; RESP 16; O2SAT 99
[2023-09-11 22:01] LABS: Appearance Urine Clear (Clear); Bacteria Urine Rare /hpf; Bilirubin Urine Negative (Negative); Blood Urine 2+ (Negative); Color Urine Yellow (Yellow); Glucose Urine UA Negative (Negative); Ketones Urine Negative (Negative); Leukocyte Esterase Ur Trace LEU/UL (Negative); Nitrate Urine Negative (Negative); Non Pathogenic Casts 0-2; Protein Urine Negative (Negative); RBC Urine 0-2 /hpf (0-2); Specific Grav Ur 1.021 (1.001-1.035); Squamous Epithelial Cell Urine Few /hpf (Few); Urobilinogen Urine 0.2 mg/dL (<2.0); pH Urine 5.5 (5.0-9.0)
[2023-09-11 22:12] LABS: Add Urine Microscopic? YES
[2023-09-11 22:17] LABS: Basophils Percent Auto 0.4 % (0.2-1.2); Eosinophils Absolute Auto 0.2 K/mm3 (0-0.3); Eosinophils Percent Auto 2.3 % (0-4.4); Hematocrit 34.9 % (37.0-47.0); Hemoglobin 11.6 g/dL (12.0-15.0); Immature Granulocyte Absolute 0.03 K/mm3 (0.00-0.031); Immature Granulocyte Percent A 0.3 % (0-0.5); Lymphocytes Absolute Auto 2.47 K/mm3 (0.9-3.2); Lymphocytes Percent Auto 25.5 % (18.3-44.2); Mean Corpuscular HGB Conc 33.2 g/dl (32-36); Mean Corpuscular Hemoglobin 30.5 pg (26-34); Mean Corpuscular Volume 91.8 fl (80-100); Mean Platelet Volume 11.4 fl (7.4-10.4); Monocytes Absolute Auto 0.6 K/mm3 (0.1-0.6); Monocytes Percent Auto 5.8 % (2.6-8.5); Neutrophils Absolute Auto 6.4 K/mm3 (1.3-6.7); Neutrophils Percent Auto 65.7 % (45.5-73.1); Platelet Count Result 239 k/mm3 (150-375); Red Cell Distribution Width 13.1 % (11.5-14.5); White Blood Count 9.7 K/mm3 (4.5-10.0)
[2023-09-11] MEDS: ONDANSETRON INJ 4 MG/2 ML VIAL IV PUSH (22:17)
[2023-09-11 22:18] VITALS: BP 103/82; PULSE 80; RESP 16; O2SAT 100
[2023-09-11 22:25] LABS: Alanine Aminotransferase 14 U/L (6-35); Albumin Level 3.9 g/dL (3.5-5.1); Alkaline Phosphatase 82 U/L (38-126); Anion Gap 11 mmol/L (4-12); Aspartate Amino Transferase 16 U/L (14-36); Bilirubin,Total 0.2 mg/dL (0.2-1.3); Blood Urea Nitrogen 11 mg/dL (7-17); Calcium 8.8 mg/dL (8.4-10.2); Carbon Dioxide 26 mmol/L (22-30); Chloride 100 mmol/L (98-107); Estimated CRCL calculation 127 ml/min; Estimated Glomerular Filt Rate > 60; Glucose 110 mg/dL (65-110); Potassium 3.3 mmol/L (3.4-5.0); Sodium 137 mmol/L (137-145)
[2023-09-11 22:31] LABS: INR 0.9; Prothrombin Time 12.7 Seconds (11.1-14.7)
[2023-09-11 22:32] LABS: Partial Thromboplastin Time 26.3 Seconds (22.3-36.8)
[2023-09-11 23:23] VITALS: BP 124/64; PULSE 77; RESP 15; O2SAT 100
== END 2023-09-11 23:24 | disposition home or self-care (01) ==
PROVIDERS: Student in an Organized Health Care Education/Training Program; Emergency Provider Nurse Practitioner Family
DX: O20.9 Hemorrhage in early pregnancy, unspecified (principal); O09.521 Supervision of elderly multigravida, first trimester; Z3A.09 9 weeks gestation of pregnancy; Z87.891 Personal history of nicotine dependence
CPT/HCPCS: 36415; 80053; 81001; 84702; 85025; 85461; 85610; 85730; 86850; 86900; 86901; 87086; 87088; 96374; 99284; J2405

== ENCOUNTER 2023-09-29 06:56 | Observation (INO) | payer OTHER, SELFPAY ==
[2023-09-29] VITALS (28 sets, daily range): BP systolic 90–125; BP diastolic 30–68; PULSE 58–75; RESP 15–18; TEMP 36.4–37.2; O2SAT 91–100; BMI 42.4
--- NOTE | ~2023-09-29 | US_ITS ---
US_ABDRLQ_US Ordering provider: Andreina Oh MD History: . , kidney stone, appendix . Comparison: None. FINDINGS: Graded compression with a linear ultrasound probe of the right lower quadrant of the abdomen was perf ormed. appendix is not visualized. IMPRESSION: Appendix is not visualized. Clinical correlation advised. Reviewed, dictated and finalized at location A.
--- NOTE | ~2023-09-29 | US_ITS ---
EXAMINATION: US renal BI DATE: 09/29/2023 09:56 INDICATION: Right flank pain. First trimester of . TECHNIQUE: Multiple ultrasound grayscale images of the kidneys were obtained. COMPARISON: Ultrasound kidneys 08/18/2023 FINDINGS: The right kidney measures 11.3 x 6.5 x 5.9 cm. The left kidney measures 11.0 x 4.3 x 3.6 cm. The kidn eys demonstrate normal parenchymal echogenicity. There is mild right hydronephrosis. The bladder is n ormal. IMPRESSION: 1. Mild right hydronephrosis, new from 08/18/2023. Reviewed, dictated and finalized at location A.
--- NOTE | ~2023-09-29 | US_ITS ---
FIRST TRIMESTER ULTRASOUND 09/29/2023 14:08 CDT Ordering provider: Lee Ann Avery MD History: . Spotting in . Comparison: None. FINDINGS: INTRAUTERINE GESTATIONAL SAC: Present. And measures 5.2 cm. YOLK SAC: Not seen. POLE: Present. Measures 5.2 cm equivalent to 11 weeks and 6 days. heart rate is 153 bpm. Last menstrual age is 11 weeks and 4 days. HAL is April 15, 2024. Ultrasound age is 11 weeks and 6 days. HAL is April 13, 2024. UTERUS: The uterus measures 15x 7.3x 10.8 cm in length which is within normal limits. No myometrial m asses. FREE FLUID: None. OVARIES: Normal in size with the right measuring 2.5 x 1.8 x 2.3 cm and the left measuring 2.5x 1.7x 2.3 cm. Doppler flow is demonstrated within both ovaries. ADNEXAL MASSES: None. IMPRESSION: Intrauterine uterine with single live fetus of 11 weeks and 6 days. HAL is April 13. Reviewed, dictated and finalized at location A. IMPRESSION: Intrauterine uterine with single live fetus of 11 weeks and 6 days. E DD is April 13, 2024.
--- NOTE | 2023-09-29 07:16 | ED.GENADULT ---
HPI - General Adult General Chief complaint: Abdominal Pain Stated complaint: 12 weeks , abdominal pain/back pain Time Seen by Provider: 09/29/23 07:06 Source: patient History of Present Illness HPI narrative: 33 years old white female came to the emergency room with sudden onset of suprapubic pain radiating to the right flank area started 3:00 a.m. associated with nausea and multiple vomiting. Patient is 12 weeks , denies any vaginal bleeding or discharge patient is healthy otherwise denies any history of abdominal surgery or kidney stone. Related Data Allergies Allergy/AdvReac Type Severity Reaction Status Date / Time No Known Allergies Allergy Verified 09/11/23 19:51 Review of Systems Review of Systems: All systems reviewed & are unremarkable except as noted in HPI and below PMFSH Past Medical History Medical History Abnormal glucose tolerance in Bipolar disorder Depression No pertinent past medical history Threatened Surgical History Surgical History No pertinent past surgical history Family History Family History Father Family history of heart disease in male family member before age 55, Onset Age: 56 Patient's father is Social History Social History Smoking status: Former smoker Tobacco type: cigarettes Second hand tobacco smoke exposure: No Smoking end date: 05/14/21 Alcohol intake: never Substance use: former Substance use type: marijuana Last use: 05/14/2021 Do You Feel Safe in your Home?: Yes Lack of Transportation: No Lack of Food: Sometimes True Current Housing: I Have Housing Concerned About Future Housing: No Difficulty Paying Gas/Electric Bills: YES Difficulty Paying for Meds: No Currently Unemployed: No Education: Associate Degree Difficulty w/ Childcare or Family Care: No Living arrangements: other Additional living arrangements comments: now engaged Occupation/Education: occupation 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 Gender identity (if verbalized by the patient): Female Sexual Orientation (if Verbalized by the Patient): Straight or Heterosexual Spiritual care concerns: No Exam Narrative: General appearance: Well-developed, well-nourished Skin: Normal color Head: Normocephalic, nontraumatic Eyes: Clear conjunctiva ENT: Oropharynx normal, ears normal, nose normal Neck: Supple, nontender Chest and respiratory: Airway patent, no respiratory distress, no accessory muscle use Heart: Regular rate/rhythm Abdomen: Soft, slight tenderness right flank, no organomegaly, quiet bowel sounds Vascular: Normal peripheral pulses, normal capillary refill. Musculoskeletal: Normal range of motion, nontender back Neurologic: Alert and oriented ?3, CIRCUS TRAINER is normal as tested, no gross motor deficit Course Consultations Consultation #1: Dr. lopez Admit to OBGYN Date: 09/29/23 Time: 12:10 Consultation #2: dr salgado Date: 09/29/23 Time: 12:10 Vital Signs Vital signs: Vital Signs Temperature 36.8 C 09/29/23 06:59 Pulse Rate 75 09/29/23 06:59 Respiratory Rate 15 09/29/23 06:59 Blood Pressure 121/68 09/29/23 06:59 Pulse Oximetry 100 09/29/23 06:59 Oxygen Delivery Room Air 09/29/23 06:59 Temperature 36.8 C 09/29/23 06:59 Pulse Rate 75 09/29/23 06:59 Respiratory Rate 15 09/29/23 06:59 Blood Pressure 121/68 09/29/23 06:59 Pulse Oximetr
[2023-09-29 07:20] LABS: BEDSIDEPREGUCG Positive
[2023-09-29 07:37] LABS: Basophils Percent Auto 0.3 % (0.2-1.2); Eosinophils Absolute Auto 0.1 K/mm3 (0-0.3); Eosinophils Percent Auto 0.9 % (0-4.4); Hematocrit 38.5 % (37.0-47.0); Hemoglobin 12.9 g/dL (12.0-15.0); Immature Granulocyte Absolute 0.03 K/mm3 (0.00-0.031); Immature Granulocyte Percent A 0.4 % (0-0.5); Lymphocytes Absolute Auto 1.44 K/mm3 (0.9-3.2); Lymphocytes Percent Auto 19.1 % (18.3-44.2); Mean Corpuscular HGB Conc 33.5 g/dl (32-36); Mean Corpuscular Hemoglobin 30.4 pg (26-34); Mean Corpuscular Volume 90.6 fl (80-100); Mean Platelet Volume 11.4 fl (7.4-10.4); Monocytes Absolute Auto 0.4 K/mm3 (0.1-0.6); Monocytes Percent Auto 5.3 % (2.6-8.5); Neutrophils Absolute Auto 5.6 K/mm3 (1.3-6.7); Platelet Count Result 253 k/mm3 (150-375); Red Blood Count 4.25 M/mm3 (4.2-5.4); Red Cell Distribution Width 12.9 % (11.5-14.5); White Blood Count 7.6 K/mm3 (4.5-10.0)
[2023-09-29] MEDS: SODIUM CHLORIDE 0.9% IV 1,000 ML 999 ML IV CONT (07:37)
[2023-09-29] MEDS: ONDANSETRON INJ 4 MG/2 ML VIAL IV PUSH ×3 (07:38→19:50)
[2023-09-29] MEDS: MORPHINE SULFATE (*CRX) 4 MG/ML INJ (07:38)
[2023-09-29] MEDS: MORPHINE SULFATE (*CRX) 4 MG/ML INJ IV PUSH ×2 (07:40→08:30)
[2023-09-29 07:41] LABS: Add Urine Microscopic? YES; Appearance Urine Cloudy (Clear); Bacteria Urine 3+ /hpf; Bilirubin Urine Negative (Negative); Blood Urine 2+ (Negative); Color Urine Yellow (Yellow); Glucose Urine UA Negative (Negative); Ketones Urine Trace mg/dL (Negative); Leukocyte Esterase Ur 1+ LEU/UL (Negative); Nitrate Urine Negative (Negative); Non Pathogenic Casts 0-2; Protein Urine 1+ mg/dL (Negative); RBC Urine 51-100 /hpf (0-2); Specific Grav Ur 1.025 (1.001-1.035); Squamous Epithelial Cell Urine Many /hpf (Few); Urobilinogen Urine 0.2 mg/dL (<2.0); WBC Urine 21-50 /hpf (0-3)
[2023-09-29 07:48] LABS: Alanine Aminotransferase 14 U/L (6-35); Albumin Level 4.2 g/dL (3.5-5.1); Alkaline Phosphatase 96 U/L (38-126); Anion Gap 12 mmol/L (4-12); Aspartate Amino Transferase 18 U/L (14-36); Bilirubin,Total 0.3 mg/dL (0.2-1.3); Blood Urea Nitrogen 10 mg/dL (7-17); Calcium 9.1 mg/dL (8.4-10.2); Carbon Dioxide 20 mmol/L (22-30); Chloride 104 mmol/L (98-107); Estimated CRCL calculation 110 ml/min; Estimated Glomerular Filt Rate > 60; Glucose 126 mg/dL (65-110); Lipase 50 U/L (23-300); Potassium 3.5 mmol/L (3.4-5.0); Sodium 136 mmol/L (137-145)
--- NOTE | 2023-09-29 12:34 | WPDURCON ---
Assessment and Plan Assessment and plan (1) Hydronephrosis: Code(s): N13.30 - Unspecified hydronephrosis Status: Acute Assessment and Plan: Mild right hydronephrosis in setting of right flank/back pain. Discussed that this could possibly be indicative of a small kidney stone or may be physiologic change due to . Given normal creatinine, normal WBC, and lack of fever, no indication for acute urologic intervention. If her pain becomes more severe or if she develops fever, would recommend repeat renal US to assess for worsening hydronephrosis. Discussed possibility of right ureteral stent placement with routine stent exchanges if worsening hydro, though no indication for that at this time. (2) Abnormal urinalysis: Code(s): R82.90 - Unspecified abnormal findings in urine Status: Acute Assessment and Plan: UA slightly abnormal but no bothersome urinary symptoms. Urine culture is pending. Continue empiric antibiotics while awaiting urine culture results. (3) : Code(s): Z34.90 - Encounter for supervision of normal , unspecified, unspecified trimester Status: Acute Assessment and Plan: OB evaluation Urology Consult Note HPI Date Seen: 09/29/23 Requesting Physician: Lee Ann Avery MD Primary Care Provider: Yaniv Calderón MD Consult Narrative Narrative: Vanda Gage is a 33 year old female with no prior urologic history who is 12 weeks . She awoke this morning with diffuse abdominal and back pain. She presented to the ER with these complaints and upon arrival, reports her pain settled in her right back and flank/ She had associated nausea and vomiting as well as sweats. She denies fever or chills. Upon arrival, her vital signs were stable and she was afebrile. WBC normal at 7.6. Creatinine 0.7. UA slightly abnormal with 1+ leukocytes, 2+ blood, 3+ bacteria, however many squamous cells. A renal ultrasound completed showed mild right hydronephrosis. At the time of my evaluation, she is resting comfortably. She denies dysuria or hematuria. She endorses 7/10 right sided back pain. Pain initially improved with morphine but now has returned. Review of Systems Review of Systems: All systems reviewed & are unremarkable except as noted in HPI and below PMFSH Past Medical History Medical History Abnormal glucose tolerance in Bipolar disorder Depression No pertinent past medical history Threatened Surgical History Surgical History No pertinent past surgical history Family History Family History Father Family history of heart disease in male family member before age 55, Onset Age: 56 Patient's father is Social History Social History Smoking status: Former smoker Tobacco type: cigarettes Second hand tobacco smoke exposure: No Smoking end date: 05/14/21 Alcohol intake: never Substance use: former Substance use type: marijuana Last use: 05/14/2021 Do You Feel Safe in your Home?: Yes Lack of Transportation: No Lack of Food: Sometimes True Current Housing: I Have Housing Concerned About Future Housing: No Difficulty Paying Gas/Electric Bills: YES Difficulty Paying for Meds: No Currently Unemployed: No Education: Associate Degree Difficulty w/ Childcare or Family Care: No Living arrangements: other Additional living arrangements comments: now engaged Occupation/Education: occupation 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
--- NOTE | 2023-09-29 12:35 | OBADM ---
This patient, Vanda Gage, admitted to the OB room OB Post 112 for observation. Patient/family oriented to hospital policies and general routines including ID bracelet, bed and alarms, visiting hours, pain management, procedures, bathroom and other care routines, personal items, smoking policy, room service/diet, and visiting hours. Patient/Family are encouraged to report perceived risks to care and to ask questions if they do not understand what they are told or what they should do.
[2023-09-29] MEDS: SODIUM CHLORIDE 0.9% IV 1,000 ML 125 ML IV CONT ×2 (13:09→22:25)
[2023-09-29] MEDS: HYDROmorphone HCL INJ (*CRX) 1 MG/ML SYR 0.5 MG IV PUSH ×5 (13:18→22:24)
--- NOTE | 2023-09-29 13:40 | PM.IMHP ---
H&P: HPI History of Present Illness Date/Time: 09/29/23 13:40 Chief Complaint: pain Narrative: Vanda is a 33yo @ 11w 4d (HAL 04/15/24) who presented to the ER w/ nausea, vomiting, and right flank pain. She denies any fevers, chills. She has had some light vaginal spotting. No abnormal vaginal discharge. She has never had a h/o kidney stone or kidney infection. Review of Systems Constitutional: Constitutional: Denies chills and Denies fever(s) Cardiovascular: Cardiovascular: Denies chest pain Respiratory: Respiratory: Denies dyspnea Gastrointestinal: Gastrointestinal: Denies abdominal pain, Reports nausea and Reports vomiting Genitourinary: Genitourinary: Reports abnormal vaginal bleeding, Denies nocturia and Reports flank pain Neurologic: Denies dizziness PMFSH Past Medical History Medical History Abnormal glucose tolerance in Bipolar disorder Depression No pertinent past medical history Threatened Surgical History Surgical History No pertinent past surgical history Family History Family History Father Family history of heart disease in male family member before age 55, Onset Age: 56 Patient's father is Social History Social History Smoking status: Former smoker Tobacco type: cigarettes Second hand tobacco smoke exposure: No Smoking end date: 05/14/21 Alcohol intake: never Substance use: former Substance use type: marijuana Last use: 05/14/2021 Do You Feel Safe in your Home?: Yes Lack of Transportation: No Lack of Food: Sometimes True Current Housing: I Have Housing Concerned About Future Housing: No Difficulty Paying Gas/Electric Bills: YES Difficulty Paying for Meds: No Currently Unemployed: No Education: Associate Degree Difficulty w/ Childcare or Family Care: No Living arrangements: other Additional living arrangements comments: now engaged 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/Education: occupation 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 Gender identity (if verbalized by the patient): Female Sexual Orientation (if Verbalized by the Patient): Straight or Heterosexual Spiritual care concerns: No Meds Home Medications and Allergies Home Medications Medication Instructions Recorded Confirmed Type vit no.95-ferrous 1 tablet PO DAILY 09/29/23 09/29/23 History fumarate 28 mg-folic acid 800 mcg tablet () Allergies Allergy/AdvReac Type Severity Reaction Status Date / Time No Known Allergies Allergy Verified 09/11/23 19:51 Vital Signs Vital Signs - 24 hr 09/29/23 06:59 09/29/23 12:34 09/29/23 12:35 Temperature 98.2 F Pulse Rate 75 69 Respiratory Rate 15 Blood Pressure 121/68 122/63 Pulse Oximetry 100 100 Oxygen Delivery Room Air 09/29/23 12:40 09/29/23 12:45 09/29/23 12:46 Temperature Pulse Rate 59 L Respiratory Rate Blood Pressure 118/55 L Pulse Oximetry 100 100 Oxygen Delivery 09/29/23 12:50 09/29/23 12:55 09/29/23 12:56 Temperature Pulse Rate Respiratory Rate Blood Pressure Pulse Oximetry 99 100 92 Oxygen Delivery 09/29/23 12:56 09/29/23 13:01 09/29/23 13:06 Temperature Pulse Rate 69 Respiratory Rate Blood Pressure 125/64 Pulse Oximetry 91 100 100 Oxygen Delivery 09/29/23 13:11 09/29/23 13:14 09/29/23 13:19 Temperature Pulse Rate Respiratory Rate Blood Pressure Pulse Oximetry 100 99 100 Oxygen Delivery 09/29/23 13:24 09/29/23 13:29 09/29/23 13:34 Temperature Pulse Rate Respiratory Rate Blood Pressure Pulse Oximetry 98 100 100 Oxygen Delivery Exam Const: General: cooperative and comfortable (just received dilau
--- NOTE | 2023-09-29 17:03 | PC.NURSE ---
Dr. Avery informed that pt's IV tubing was found to be leaking shortly after she received her last dose of Dilaudid. There was a wet spot on her bed and on a towel. Pt states she isn't getting any relief from this dose of medicine. IV and tubing has been replaced. One time order for additional dose of Dilaudid received.
--- NOTE | 2023-09-29 17:57 | PC.NURSE ---
Pt was sleeping when I entered the room.
[2023-09-30] MEDS: ONDANSETRON INJ 4 MG/2 ML VIAL IV PUSH ×2 (02:57→08:00)
[2023-09-30] MEDS: HYDROmorphone HCL INJ (*CRX) 1 MG/ML SYR 0.5 MG IV PUSH ×2 (02:58→07:56)
[2023-09-30] MEDS: SODIUM CHLORIDE 0.9% IV 1,000 ML 125 ML IV CONT ×2 (07:04→14:49)
[2023-09-30 08:00] VITALS: TEMP 37
[2023-09-30 08:04] VITALS: BP 112/45; PULSE 82
--- NOTE | 2023-09-30 10:58 | PM.OBPNVD ---
OB - PN: Subj Subjective Date/time seen: 09/30/23 10:58 S: Pain improved. No diet other than fluids. O: VSS afebrile + RCVAT A: HD 2...improving. P: Change to oral meds as tolerated/diet as tolerated. If does well will likely d/c home later today with oral pain meds (T#3) and antibiotics to complete course. OB - PN: Obj Data Labs 09/29/23 07:30 09/29/23 07:30 Imaging Radiologist's impression: Impressions Ultrasound 09/29/23 14:39 IMPRESSION: Intrauterine uterine with single live fetus of 11 weeks and 6 days. HAL is April 13, 2024. OB - PN A/P Time Spent With Patient Time: Total time spent is greater than 50% in coordination of care (as documented) at patient's floor/unit and/or counseling patient:
[2023-09-30] MEDS: ONDANSETRON HCL ODT 4 MG TABLET PO ×2 (11:44→15:26)
--- NOTE | 2023-09-30 11:56 | PC.NURSE ---
RN at bedside, pt tearful. States she just wants to feel better. States she hasn't felt normal in a few months. She is having problems with her relationship, work, the . This was not planned. States her fiance is happy about the baby. She previously asked about having a tubal after delivery, Dr. Calderón aware. 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 Pt states she has a therapist and psychiatrist. Encouraged keeping appointments and she is also going to make an appt with a principal biostatistician.
[2023-09-30] MEDS: ACETAMINOPHEN/CODEINE (*CRX) 300/30 MG TABLET 1 TAB PO ×2 (12:17→16:24)
[2023-09-30] MEDS: SIMETHICONE 80 MG TAB.CHEW PO (12:26)
--- NOTE | 2023-09-30 14:37 | WPDUROPN2 ---
Progress Note: A&P Assessment and Plan (1) Hydronephrosis: Code(s): N13.30 - Unspecified hydronephrosis Status: Acute Assessment and Plan: Mild right hydronephrosis in setting of right flank/back pain. Discussed that this could possibly be indicative of a small kidney stone or may be physiologic change due to . Given normal creatinine, normal WBC, and lack of fever, no indication for acute urologic intervention. If pain worsens, would repeat renal US to assess for worsening hydronephrosis. Discussed possibility of right ureteral stent placement with routine stent exchanges if worsening hydro, though no indication for that at this time and she is not interested in this. (2) Abnormal urinalysis: Code(s): R82.90 - Unspecified abnormal findings in urine Status: Acute Assessment and Plan: UA slightly abnormal but no bothersome urinary symptoms. Urine culture is pending. Continue empiric antibiotics while awaiting urine culture results. (3) : Code(s): Z34.90 - Encounter for supervision of normal , unspecified, unspecified trimester Status: Acute Assessment and Plan: OB evaluation Subjective Subjective Date/Time Seen: 09/30/23 14:37 Interval history: Doing well today. Pain improved with meds though becomes severe when meds wear off. Having some nausea/vomiting when pain more severe. Able to tolerate diet. Denies fever or chills. Review of Systems Review of Systems: All systems reviewed & are unremarkable except as noted in HPI and below Exam Narrative: General: Awake, alert, comfortable, no acute distress HEENT: Normocephalic, atraumatic, sclerae anicteric Respiratory: Normal respiratory effort, no accessory muscle use Abdomen: Nondistended, soft, nontender Skin: Normal coloration, warm and dry Neurologic: No focal neuro deficits noted Psychiatric: Appropriate mood and affect, judgment and insight intact Objective Data Vital Signs Vital Signs: Vital Signs - 24 hr 09/29/23 17:58 09/29/23 17:59 09/29/23 18:01 Temperature Pulse Rate 70 69 Respiratory Rate Blood Pressure 92/30 L 90/56 L Pulse Oximetry 98 09/29/23 22:21 09/29/23 22:23 09/30/23 08:04 Temperature Pulse Rate 71 82 Respiratory Rate Blood Pressure 115/62 112/45 L Pulse Oximetry 100 09/29/23 18:01 09/29/23 22:23 09/30/23 08:00 Temperature 99.0 F 97.6 F 98.6 F Pulse Rate Respiratory Rate 18 18 Blood Pressure Pulse Oximetry 98 99 Intake/Output Intake/Output: Intake & Output 09/27/23 09/28/23 09/29/23 09/30/23 23:59 23:59 23:59 23:59 Intake Total 2710 1550 Output Total 1200 850 Balance 1510 700 Meds/Results Medications: Active Medications Generic Name Dose Route Start Last Admin Trade Name Freq PRN Reason Stop Dose Admin Acetaminophen/Codeine Phosphate 1 tab 09/30/23 10:03 09/30/23 12:17 Acetaminophen/Codeine (*Crx) 300/30 Mg Tablet PO 1 tab Q4H PRN Administration Pain Rated 4-6 Ceftriaxone Sodium 1 gm in 50 mls @ 100 mls/hr 09/29/23 09:00 09/30/23 11:56 Rocephin 1 Gm/Ns 50 Ml IVPB Infused Q24H DULCE Infusion Sodium Chloride 1,000 mls @ 125 mls/hr 09/29/23 12:05 09/30/23 07:04 Normal Saline Iv IV CONT 125 mls/hr .Q8H DULCE Administration Ondansetron HCl 4 mg 09/30/23 10:04 09/30/23 11:44 Ondansetron Hcl Odt 4 Mg Tablet PO 4 mg Q4H PRN Administration Nausea And Vomiting Simethicone 80 mg 09/30/23 12:18 09/30/23 12:26 Simethicone 80 Mg Tab.Chew PO 80 mg QID PRN Administration Gas Discomfort Radiology Results: ITS Impressions Renal Ultrasound 09/29/23 10:00 IMPRESSION: 1. Mild right hydronephrosis, new from 08/18/2023. Abdomen Ultrasound 09/29/23 10:11 IMPRESSION: Appendix is not visualized. Clinical correlation advised. Ultrasound 09/29/23 14:39 IMPRESSION: Intrauterine uterine pr
[2023-09-30] MEDS: METOCLOPRAMIDE HCL 10 MG TABLET PO (16:24)
--- NOTE | 2023-10-01 10:29 | P.PNOB_ITS ---
OB - Triage/Final Diagnosis Visit Information Reason for evaluation: other (back pain/renal stone/pyelonephritis) Comments/Additional reasons for admission: I have assessed the risk for this patient, Vanda Gage, and determined that she would benefit from observation care. Evaluation Laboratory results: Laboratory Tests 09/29/23 09/29/23 09/29/23 07:08 07:30 07:32 WBC 7.6 RBC 4.25 Hgb 12.9 Hct 38.5 MCV 90.6 MCH 30.4 MCHC 33.5 RDW 12.9 Plt Count 253 MPV 11.4 H Immature Gran % (Auto) 0.4 Neut % (Auto) 74.0 H Lymph % (Auto) 19.1 [place] % (Auto) 5.3 Eos % (Auto) 0.9 Baso % (Auto) 0.3 Lymph # (Auto) 1.44 [place] # (Auto) 0.4 Eos # (Auto) 0.1 Baso # (Auto) 0.0 Abs Immat Gran (auto) 0.03 Absolute Neuts (auto) 5.6 Absolute Nucleated RBC 0.000 Nucleated RBC % 0.0 Sodium 136 L Potassium 3.5 Chloride 104 Carbon Dioxide 20 L Anion Gap 12 BUN 10 Creatinine 0.70 Estim Creat Clear Calc 110 Estimated GFR > 60 Glucose 126 H Calcium 9.1 Total Bilirubin 0.3 AST 18 ALT 14 Alkaline Phosphatase 96 Total Protein 8.0 Albumin 4.2 Lipase 50 Urine Color Yellow Urine Appearance Cloudy H Urine pH 6.0 Ur Specific [place] 1.025 Urine Protein 1+ H Urine Glucose (UA) Negative Urine Ketones Trace H Ur Blood (Man) 2+ H Urine Nitrate Negative Urine Bilirubin Negative Urine Urobilinogen 0.2 Leukocyte Esterase Rfl 1+ H Urine RBC 51-100 H Urine WBC 21-50 H Ur Squamous Epith Cells Many H Urine Bacteria 3+ H Urine Casts 0-2 POC Urine HCG, Qual Positive POC Ur Preg QC Yes
== END 2023-09-30 18:40 | disposition home or self-care (01) ==
LOC: ANHED 08:42 → ANHOBPP 12:21
PROVIDERS: Admitting Provider Obstetrics & Gynecology; Emergency Provider Emergency Medicine; PCP Obstetrics & Gynecology; Visit Provider Obstetrics & Gynecology
DX: O23.01 Infections of kidney in pregnancy, first trimester (principal); Z3A.12 12 weeks gestation of pregnancy; N39.0 Urinary tract infection, site not specified; N13.30 Unspecified hydronephrosis; R82.90 Unspecified abnormal findings in urine; Z87.891 Personal history of nicotine dependence
CPT/HCPCS: 36415; 76705; 76775; 76801; 80053; 81001; 81025; 83690; 85025; 87086; 87088; 96361; 96365; 96375; 96376; 99285; A9270; G0378; G0379; J0696; J1170; J2270; J2405; J7030

== ENCOUNTER 2024-01-26 11:17 | Outpatient (CLI) | payer OTHER, SELFPAY ==
[2024-01-26 13:12] LABS: Basophils Percent Auto 0.2 % (0.2-1.2); Eosinophils Absolute Auto 0.1 K/mm3 (0-0.3); Hematocrit 31.7 % (37.0-47.0); Hemoglobin 10.2 g/dL (12.0-15.0); Immature Granulocyte Absolute 0.07 K/mm3 (0.00-0.031); Immature Granulocyte Percent A 0.7 % (0-0.5); Lymphocytes Absolute Auto 2.04 K/mm3 (0.9-3.2); Lymphocytes Percent Auto 20.2 % (18.3-44.2); Mean Corpuscular HGB Conc 32.2 g/dl (32-36); Mean Corpuscular Hemoglobin 29.3 pg (26-34); Mean Corpuscular Volume 91.1 fl (80-100); Monocytes Absolute Auto 0.5 K/mm3 (0.1-0.6); Neutrophils Absolute Auto 7.4 K/mm3 (1.3-6.7); Neutrophils Percent Auto 72.9 % (45.5-73.1); Platelet Count Result 264 k/mm3 (150-375); Red Blood Count 3.48 M/mm3 (4.2-5.4); Red Cell Distribution Width 13.4 % (11.5-14.5); White Blood Count 10.1 K/mm3 (4.5-10.0)
[2024-01-26 13:31] LABS: Glucose 1 Hour PP 50gm Dose 125 mg/dL
[2024-01-26 13:47] LABS: Rapid Plasma Reagin Non-Reactive (NonReactive)
[2024-01-26 14:36] LABS: Hepatitis B Surface Antigen Negative (Negative); Rubella IgG Antibody 25.1 IU/ML
[2024-01-26 21:16] LABS: HIV 1/2 Ab P24 Ag Result Negative (Negative)
[2024-01-27 07:32] LABS: CMV IgG Antibody <0.60 U/mL; Varicella IgG Antibody 8.51 S/CO
== END 2024-01-26 11:18 | disposition home or self-care (01) ==
LOC: ANHLAB 11:18
PROVIDERS: PCP Obstetrics & Gynecology; Visit Provider Obstetrics & Gynecology
DX: Z34.90 Encounter for supervision of normal pregnancy, unspecified, unspecified trimester (principal); Z3A.00 Weeks of gestation of pregnancy not specified
CPT/HCPCS: 36415; 82947; 84702; 85025; 86592; 86644; 86703; 86747; 86762; 86787; 86850; 86900; 86901; 87086; 87340; G0432

== ENCOUNTER 2024-01-27 14:28 | Observation (INO) | payer OTHER, SELFPAY ==
[2024-01-27 14:41] VITALS: BP 117/54; PULSE 87
[2024-01-27 14:46] VITALS: BP 116/47; PULSE 91
[2024-01-27 15:00] VITALS: BMI 43.3
--- NOTE | 2024-01-27 15:00 | OBADM ---
This patient, Vanda Gage, admitted to the OB room 117 for observation. Patient/family oriented to hospital policies and general routines including ID bracelet, bed and alarms, visiting hours, pain management, procedures, bathroom and other care routines, personal items, smoking policy, room service/diet, and visiting hours. Patient/Family are encouraged to report perceived risks to care and to ask questions if they do not understand what they are told or what they should do.
[2024-01-27 15:01] VITALS: BP 115/52; PULSE 85
[2024-01-27 15:16] VITALS: BP 115/47; PULSE 81
--- NOTE | 2024-01-28 11:35 | PM.OBTRLD ---
OB - Triage/Final Diagnosis Visit Information Comments/Additional reasons for admission: I have assessed the risk for this patient, Vanda Gage, and determined that she would benefit from observation care. Evaluation Vital signs: Vital Signs - 24 hr 01/27/24 14:41 01/27/24 14:46 01/27/24 15:01 Pulse Rate 87 91 85 Blood Pressure 117/54 L 116/47 L 115/52 L 01/27/24 15:16 Pulse Rate 81 Blood Pressure 115/47 L Final Diagnosis (1) Vaginal spotting: Code(s): N93.9 - Abnormal uterine and vaginal bleeding, unspecified Status: Acute
== END 2024-01-27 16:56 | disposition home or self-care (01) ==
PROVIDERS: Admitting Provider Obstetrics & Gynecology; Visit Provider Obstetrics & Gynecology
DX: O26.853 Spotting complicating pregnancy, third trimester (principal); Z3A.29 29 weeks gestation of pregnancy
CPT/HCPCS: G0378; G0379

== ENCOUNTER 2024-02-06 09:00 | Emergency (ER) | payer OTHER, SELFPAY ==
[2024-02-06 09:04] VITALS: BP 124/72; PULSE 80; RESP 16; TEMP 36.8; O2SAT 100
--- NOTE | 2024-02-06 09:26 | ED.URI ---
HPI - URI/Sore Throat General Chief Complaint: Upper Respiratory Infection Stated Complaint: Sinus Source: patient and RN notes reviewed Mode of arrival: ambulatory Limitations: no limitations History of Present Illness HPI Narrative: 33-year-old female presented for complaint of cough, shortness of breath, wheezing, nasal congestion over the past 3 days. Cough has resulted in vomiting. Not taking anything for symptoms. Denies vomiting, diarrhea or lethargy. Pt Quit smoking this . She is 30 weeks gestation. Denies asthma. MD elicited complaint: cough Related Data Home Medications ?Medication ?Instructions ?Recorded ?Confirmed ?Last Taken ?Type vit no.95-ferrous 1 tablet PO DAILY 09/29/23 02/06/24 02/06/24 History fumarate 28 mg-folic acid 800 mcg tablet () Allergies Allergy/AdvReac Type Severity Reaction Status Date / Time No Known Allergies Allergy Verified 02/06/24 09:14 Review of Systems Review of Systems: CONSTITUTIONAL: Endorses malaise, chills, sweats, fever EYES: Denies visual changes, redness, or discharge ENT: Reports rhinorrhea, congestion, sore throat CARDIOVASCULAR: Denies chest pain, palpitations, edema RESPIRATORY: Reports cough, post nasal drainage, dyspnea GASTROINTESTINAL: Denies abdominal pain, nausea, vomiting, diarrhea SKIN: Denies rash or itching MUSCULOSKELETAL: Endorses myalgia All systems reviewed & are unremarkable except as noted in HPI and below PMFSH Past Medical History Medical History Abnormal glucose tolerance in Bipolar disorder Depression No pertinent past medical history Threatened Surgical History Surgical History No pertinent past surgical history Family History Family History Father Family history of heart disease in male family member before age 55, Onset Age: 56 Patient's father is Social History Social History Smoking status: Former smoker Tobacco type: cigarettes Second hand tobacco smoke exposure: No Smoking end date: 05/14/21 Alcohol intake: never Substance use: former Substance use type: marijuana Last use: 05/14/2021 Do You Feel Safe in your Home?: Yes Lack of Transportation: No Lack of Food: Sometimes True Current Housing: I Have Housing Concerned About Future Housing: No Difficulty Paying Gas/Electric Bills: YES Difficulty Paying for Meds: No Currently Unemployed: No Education: Associate Degree Difficulty w/ Childcare or Family Care: No Living arrangements: other Additional living arrangements comments: now engaged Occupation/Education: occupation 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 Please see nursing chart for further information. There is no relevant family history pertinent to the presenting complaint Exam Narrative: GENERAL: mildly Ill-appearing, nontoxic no acute distress. EYES: conjunctivae clear ENT: Mucous membranes moist. Nasal congestion noted. TM pearly field with dull light reflex bilaterally; no tragal tenderness. Oropharynx mildly erythematous without lesions or exudate, no drooling, no hoarseness, no trismus, uvula midline. No tripod positioning, muffled voice, soft palate or pharyngeal wall bulging NECK: Supple. No lymphadenopathy CHEST: Right upper lobe coarse with wheezing. No respiratory distress, speaks in full sentences. HEART: Regular rate and rhythm. No murmur heard. ABD: Gravid. Reports normal movement. SKIN: Warm, dry NEURO: Alert and oriented x3. PSYCH: Normal mood and affect Course Course Emergency Course: Patient is aware of diagnosis, understands and agrees to treatment plan. Anticipatory guidance given. Patient agrees to follow-up as directed and is aware of reasons to seek care at the emergency department. Portions of this record may have been created with voice recognition software Level of Care: Express Care Visit Vital Signs Vital signs: Vital Signs Temperature 98.3 F 02/06/24 09:04 Pulse Rate 80 02/06/24 09:04 Respiratory Rate 16 02/06/24 09:04 Blood Pressure 124/72 02/06/24 09:04 Pulse Oximetry 100 02/06/24 09:04 Oxygen Delivery Room Air 02/06/24 09:04 Temperature 98.3 F 02/06/24 09:04 Pulse Rate 80 02/06/24 09:04 Respiratory Rate 16 02/06/24 09:04 Blood Pressure 124/72 02/06/24 09:04 Pulse Oximetry 100 02/06/24 09:04 Oxygen Delivery Room Air 02/06/24 09:04 reviewed MDM - URI/Sore Throat MDM Narrative Medical decision making narrative: Discussed physical exam findings. Reviewed Rx. Advised supportive measures and signs/symptoms to go to the ER. Pt is appropriate for outpt treatment and f/u with OBGYN tomorrow. She is provided with a list of safe medicines to use in . Differential Diagnosis Differential diagnosis: Likely upper respiratory infection, sinusitis and viral infection Discharge Plan Discharge Clinical Impression: Bronchitis Patient Disposition: Home, Self-Care Condition: Stable Instructions: Antibiotic Form, Acute Bronchitis (ED) Additional Instructions: Acute bronchitis can be contagious because it is usually caused by infection with a virus or bacteria. It is usually for a few days but you can be contagious for up to one week. Avoid crowds until you do not have a fever and symptoms are improved Take medication as directed Recommend Zyrtec for nasal congestion over the counter Cough syrup may cause drowsiness; avoid driving or take it at night time. When treatment for cough is needed during , guaifenesin at standard OTC doses is generally considered acceptable Tylenol every 8 hours as needed for pain Symptomatic treatment includes: rest, fluids, and increase humidity of the air at home. 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
[2024-02-06 09:43] LABS: EDSTREPNEGPOS1 Negative (Negative)
[2024-02-06 09:47] LABS: EDCOVIDSCREEN Negative (Negative); EDINFLUASCREEN Negative (Negative); EDINFLUBSCREEN Negative (Negative)
== END 2024-02-06 10:00 | disposition home or self-care (01) ==
PROVIDERS: Emergency Provider Nurse Practitioner Family
DX: O99.513 Diseases of the respiratory system complicating pregnancy, third trimester (principal); Z3A.30 30 weeks gestation of pregnancy; J40 Bronchitis, not specified as acute or chronic; Z87.891 Personal history of nicotine dependence
CPT/HCPCS: 87081; 87426; 87804; 87880; 99213; G0463

== ENCOUNTER 2024-02-22 14:16 | Outpatient (CLI) | payer OTHER, SELFPAY ==
[2024-02-22 14:37] VITALS: BP 112/42; PULSE 89; PULSE 91; BMI 43.7
[2024-02-22 14:46] VITALS: BP 105/50; PULSE 85
--- NOTE | 2024-02-22 14:57 | PC.NURSE ---
Dr. Calderón informed pt was sent from the office after reporting prism like vision in left peripheral vision intermittently for 1 1/2 weeks. Discussed BP's and reactive NST. No labs ordered. Order received to reassure pt and discharge to home to keep scheduled appointments.
[2024-02-22 15:00] VITALS: BP 105/50; PULSE 87
== END 2024-02-22 15:02 | disposition home or self-care (01) ==
LOC: ANHOBOP 14:21 → ANHLDR 14:23
PROVIDERS: Visit Provider Obstetrics & Gynecology
DX: O13.9 Gestational [pregnancy-induced] hypertension without significant proteinuria, unspecified trimester (principal); O26.899 Other specified pregnancy related conditions, unspecified trimester; Z3A.00 Weeks of gestation of pregnancy not specified
CPT/HCPCS: 59025; 99199

== ENCOUNTER 2024-04-08 13:34 | Inpatient (IN) | payer OTHER, SELFPAY ==
[2024-04-08] VITALS (126 sets, daily range): BP systolic 67–155; BP diastolic 37–102; PULSE 72–148; TEMP 36.6–37.3; O2SAT 97–100; BMI 44.0
--- OUTSIDE RECORDS SUMMARY | 2024-04-08 13:56 | XMS_ITS | Clinical Summary ---
Author Organization [facility] Address [address] [place] [address] Care Team Providers Care Manager Of Business Operations Name Role Phone Unavailable Primary Care Provider Unavailabl e Source Comments [facility],non-owned Affiliates and Associated Physician Practices is amultiple site organization consisting of ambulatory clinics and hospital sitesin [place], [place], [place] and [place]. This disclosure is being madepursuant to the Care Everywhere program and may not contain all information available regarding this patient. Last updated 17.[facility] [employer] Allergies No known active allergies Social History Tobacco Use Types Packs/Day Years Used Date Smoking Tobacco: Never Assessed Estimated Date of Delivery Comme nts Yes 04/17/2024 Based on last me nstrual period of 07/12/2023 Sex and Gender Information Value Date Recorded Sex Assigned at Not on file Gender Identity Not on file Sexual Orientation Not on file Plan of Treatment Health Maintenance Due Date Last Done Comments PAP SMEAR 1988 HIV SCREENING 02/12/2003 HEPATITIS C SCREENING 02/08/2006 DTAP/TDAP/TD VACCINES (1 - Tdap) 02/12/2007 HEPATITIS B VACCINE (1 of 3 - 19+ 3-dose series) 02/12/2007 COVID-19 VACCINE ( - 2023-2 5 season) 2023 INFLUENZA VACCINE (#1) 2023 OB-ONE HOUR GLUCOSE 01/10/2024 OB-TDAP CURRENT 01/17/2024 OB-RHOGAM INJECTION 01/24/2024 DEPRESSION SCREENING 02/16/2024 OB-GROUP B STREP SCREEN 03/13/2024 ZOSTER VACCINE (1 of 2) 02/12/2038 HIB VACCINE Aged Out No longer eligi ble based on patient's age to complete this topic HPV VACCINE Aged Out No longer eligi ble based on patient's age to complete this topic MENINGOCOCCAL (Group B) VACCINE Aged Out No longer eligible based on patient's age to complete this topic MENINGOCOCCAL VACCINE Aged Out No ewelina tammie eligible based on patient's age to complete this topic PNEUMOCOCCAL VACCINE Aged Out No long er eligible based on patient's age to complete this topic Respiratory Syncytial Virus (RSV) Vaccine Pt: or over 60 yrs (No Doses Required) Completed
--- OUTSIDE RECORDS SUMMARY | 2024-04-08 13:56 | XMS_ITS | Referral Summary ---
Author Organization [facility] Address [address] [place] [address] Care Team Providers Care Chart Picker Name Role Phone Unavailable Primary Care Provider Unavailabl e Source Comments [facility],non-owned Affiliates and Associated Physician Practices is amultiple site organization consisting of ambulatory clinics and hospital sitesin [place], [place] and [place]. This disclosure is being madepursuant to the Care Everywhere program and may not contain all information available regarding this patient. Last updated 17.[facility] [employer] Allergies No known active allergies Social History Tobacco Use Types Packs/Day Years Used Date Smoking Tobacco: Never Assessed Estimated Date of Delivery Comme nts Yes 04/17/2024 Based on last me nstrual period of 07/12/2023 Sex and Gender Information Value Date Recorded Sex Assigned at Not on file Gender Identity Not on file Sexual Orientation Not on file Plan of Treatment Not on file
--- OUTSIDE RECORDS SUMMARY | 2024-04-08 13:56 | XMS_ITS ---
Author Organization [facility] Address [address] [place] [address] Care Team Providers Care Crane Service Technician Name Role Phone Nadya Morris Primary Care Provider Jessa Noriega [phone] REASON FOR VISIT 2 Month Psych F/U & Med Refill Social History Sex Assigned At : Social History Observation Description Sex Assigned At Female Encounters Encounter Location Date Provider Diagnosis [address] [place] [address] 10/25/2023 Jessa Noriega Plan Of Treatment No Information Progress Notes * Vanda BURGERDOB:1990 (34 yo F)Acc No.[id number]:10/25/2023 UNLOCKED PROGRESS NOTE Patient: Vanda GAONA Provider: Carrington Noriega, MSN, MEDICAL IMAGING TECHNOLOGIST, MEDICAL DETAIL REPRESENTATIVE-C :1990 A ge:33 Y S ex:Female Date:10/25/2023 Address:[address], [facility] Pcp:Nadya Morris Subjective: * Chief Complaints: * 1 . 2 Month Psych F/U & Med Refill. * Medical History: Objective: * Vitals: Assessment: Plan: * Treatment: * * Electronic signature of María Noriega , [id number] on 04/08/2024 at 01:56 PM AXMINSTER WEAVER Sign off status: Pending * Provider: Carrington Noriega, JERROD, MEDICAL IMAGING TECHNOLOGIST, MEDICAL DETAIL REPRESENTATIVE-C Date: 0 10/25/2023 Generated for Rigoberto shell/Jose Eduardo/Edgar on: 0 04/08/2024 01:56 PM AXMINSTER WEAVER
--- OUTSIDE RECORDS SUMMARY | 2024-04-08 13:57 | XMS_ITS | Patient Health Record ---
Author Organization [facility] Address [address] [place] [address] Care Team Providers Care Mainspring Reverse Winder Name Role Phone Nadya Morris Primary Care Provider [phone] HariJessa lovelace Unavailable [phone] Alexey Rita Unavailable [phone] Allergies No Known Allergies Results Component Value Reference Range Notes Lipid Panel* Reviewed date:07/08/2023 02:29:19 PM Interpretation:High Performing Lab:[facility] [place], [address] [place] [address], Phone - [phone], Director - [facility] Notes/Report: Cholesterol, Total 174 100-199 mg/dL Triglycerides 69 0-149 mg/dL HDL Cholesterol 47 >39 mg/dL VLDL Cholesterol Michael 13 5-40 mg/dL LDL Chol Calc ([facility]) 114 0-99 mg/dL TSH Rfx on Abnormal to Free T4 Reviewed date:07/08/2023 02:29:19 PM Interpretation:Normal Performing Lab:[facility] [place], [address] [facility], Phone - [phone], Director - [facility] Notes/Report: TSH 2.120 0.450-4.500 uIU/mL CMP 14 Comprehensive Metabol ic Panel* Reviewed date:07/08/2023 02:29:19 PM Interpretation:Normal Performing Lab:[facility] [place], [address] [facility], Phone - [phone], Director - [facility] Notes/Report: Glucose 92 70-99 mg/dL BUN 14 6-20 mg/dL Creatinine 0.87 0.57-1.00 mg/dL eGFR 89 >59 mL/min/1.73 BUN/Creatinine Ratio 16 9-23 Sodium 139 134-144 mmol/L Potassium 4.5 3.5-5.2 mmol/L Chloride 103 96-106 mmol/L Carbon Dioxide, Total 24 20-29 mmol/L Calcium 9.0 8.7-10.2 mg/dL Protein, Total 6.9 6.0-8.5 g/dL Albumin 4.3 3.9-4.9 g/dL Globulin, Total 2.6 1.5-4.5 g/dL A/G Ratio 1.7 1.2-2.2 Bilirubin, Total 0.3 0.0-1.2 mg/dL Alkaline Phosphatase 107 44-121 IU/L AST (SGOT) 13 0-40 IU/L ALT (SGPT) 19 0-32 IU/L Vitamin D, 25-Hydroxy* Reviewed date:07/08/2023 02:29:19 PM Interpretation:Low Performing Lab:[facility]3], Phone - [phone], Director - [facility] Notes/Report: Vitamin D, 25-Hydroxy 22.6 30.0-100.0 ng/mL Vitamin D deficiency has been defined by the [place] of [employer] and an Endocrine Society practice guideline as a level of serum 25-OH vitamin D less than 20 ng/mL (1,2). The Endocrine Society went on to further define vitamin D insufficiency as a level between 21 and 29 ng/mL (2). 1. IOM ([place] of [employer]). 2010. Dietary reference intakes for calcium and D. [place]: The National Academies Press. 2. Catia MF, Polo NC, Fabiola POON, et al. Evaluation, treatment, and prevention of vitamin D deficiency: an Endocrine Society clinical practice guideline. JCEM. 2010; 96(7):1911-30. CBC With Differential/Platel et* Reviewed date:07/08/2023 02:29:19 PM Interpretation:Normal Performing Lab:[facility] [place], [address] [facility]3], Phone - [phone], Director - [facility] Notes/Report: WBC 6.4 3.4-10.8 x10E3/uL RBC 4.21 3.77-5.28 x10E6/uL Hemoglobin 12.4 11.1-15.9 g/dL Hematocrit 37.8 34.0-46.6 % MCV 90 79-97 fL MCH 29.5 26.6-33.0 pg MCHC 32.8 31.5-35.7 g/dL RDW 12.6 11.7-15.4 % Platelets 279 150-450 x10E3/uL Neutrophils 48 Not Estab. % Lymphs 39 Not Estab. % Monocytes 8 Not Estab. % Eos 4 Not Estab. % Basos 1 Not Estab. % Neutrophils (Absolute) 3.1 1.4-7.0 x10E3/uL Lymphs (Absolute) 2.5 0.7-3.1 x10E3/uL Monocytes(Absolute) 0.5 0.1-0.9 x10E3/uL Eos (Absolute) 0.2 0.0-0.4 x10E3/uL Baso (Absolute) 0.0 0.0-0.2 x10E3/uL Immature Granulocytes 0 Not Estab. % Immature Grans (Abs) 0.0 0.0-0.1 x10E3/uL Hemoglobin A1c* Reviewed date:07/08/2023 02:29:19 PM Interpretation:High Performing Lab:[facility] [place], [address] [facility], [place], Phone - [phone], Director - Mamadou Notes/Report: Hemoglobin A1c 5.8 4.8-5.6 % . Prediabetes: 5.7 - 6.4 Diabetes: >6.4 Glycemic control for adults with diabetes: <7.0 Reason For Referral Reason plantar pain Diagnosis 1 Plantar fascia syndr ome (M72.2) Referral Organization [facility] Referring Provider First Name Nadya Referring Provider Last Name Short [facility]erred Provider Specialty Podiatry General Notes Rosio LARKIN, Ysabel E 0 07/08/2023 09:16:49 AM > Successfully faxed referral order/pertinent pt. information to [facility] in [place], [place]. Pt. notified of referral information both by message sent via [facility] [employer] system and by letter sent via mail. Clinical Notes [facility] [address], [place] [address], Referral Priority Routine Medications Medication SIG (Take, Route, Frequency, Duration) Notes Start Date End Date Status FLUoxetine HCl 20 MG 3 capsules Orally O nce a day for 30 days Not-Taking buPROPion HCl ER (XL) 150 MG 1 tablet in the morning Orally Once a day for 30 days 07/06/2023 Not-Taking Active Sertraline HCl 50 MG 1 tablet Orally Onc e a day for 30 days 08/27/2023 Active Social History Tobacco Use: Social History Observation Description Date Details (start date - stop date) Never Smoker NA - NA Sex Assigned At : Social History Observation Description Sex Assigned At Female Dont use, Tobacco Use/Smoking Question Answer Notes Are you a former smoker How long has it been since you last smoked? 6-12 months Tobacco Control (Standard) Question Answer Notes Tobacco use: Nonsmoker Section Notes: Social smoker Social smoker Social smoker Social smoker Social smoker Social smoker Social smoker Social smoker Social smoker Social smoker Social smoker Social smoker Social smoker Problems Problem Type SNOMED Code ICD Code Onset Dates Problem Status W/U Status Risk Notes Problem Generalized anxiety disorder (95001321) Generalized anxiety disorder (F41.1) Active confirmed Problem 72955232 Anxiety (F41.9) Active confirmed Problem Vitamin D deficiency (93558484) Vitamin D deficiency (E55.9) Active confirmed Problem 87443189 Depression, unspecified depression type (F32.9) Active confirmed Problem Bipolar II disorder (23134538) Bipolar 2 disorder, major depressive episode (F31.81) Active confirmed Vital Signs Heart Rate 66 /min 08/27/2023 Temperature 97.3 degrees Fahrenheit 08/27/2023 Respiratory Rate 16 /min 08/27/2023 Oximetry 99 % 08/27/2023 Blood pressure diastolic 60 mm Hg 08/27/2023 Height 63.00 in 08/27/2023 Blood pressure systolic 110 mm Hg 08/27/2023 Weight 231.4 lbs 08/27/2023 BMI 40.99 kg/m2 08/27/2023 Encounters Encounter Location Date Provider Diagnosis [address] [place] [address] 06/29/2023 Jessa Noriega Encounter for screening for malignant neoplasm of cervix Z12.[address] [place] [address] 06/29/2023 Jessa Noriega Depression, unspecified depression type F32.[address] [address] 07/08/2023 Nadya Morris Vitamin D deficiency E55.[address] [address] 08/27/2023 Rita Blackburn Depression, unspecified depression type F32.9 ; Generalized anxiety disorder F41.1 and Nutritional counseling Z71.[address] [address] 07/07/2023 Nadya Morris Screening for diabet es mellitus Z13.1 ; Plantar fascia syndrome M72.2 ; Screening for deficiency anemia Z13.0 ; Screening for metabolic disorder Z13.228 ; Screening for thyroid disorder Z13.29 ; Screening for hyperlipidemia Z13.220 and Nutritional counseling Z71.3 [place] [address] [facility] [place] [address] 07/06/2023 Jessa Noriega Depression, unspecified depression type F32.9 and Generalized anxiety disorder F41.1 Assessments Encounter Date Diagnosis (ICD Code) Assessment Notes Treatment Notes Treatment Clinical Notes Section Notes 08/27/2023 Depression, unspecified depression type (ICD-10 - F32.9) 07/08/2023 Vitamin D deficiency (ICD-10 - E55.9) 07/06/2023 Depression, unspecified depression type (ICD-10 - F32.9) Client hx of doing fair on Wellbutrin. Reports she does not know why she stopped taking it- restarting. Discussed r/b/se. Client to schedule appt with PCP regarding pain in hands and feet- she v/u. 06/29/2023 Depression, unspecified depression type (ICD-10 - F32.9) 06/29/2023 Encounter for screening for malignant neoplasm of cervix (ICD-10 - Z12.4) Patient Educated with: Learning about Cervical Cancer Screenings.pdf (Learning about Cervical Cancer Screenings.pdf) 07/07/2023 Screening for diabetes mellitus (ICD-10 - Z13.1) 07/07/2023 Plantar fascia syndrome (ICD-10 - M72.2) 07/07/2023 Screening for deficiency anemia (ICD-10 - Z13.0) 07/06/2023 Generalized anxiety disorder (ICD-10 - F41.1) Encouraged therapy. 08/27/2023 Generalized anxiety disorder (ICD-10 - F41.1) D/C fluoxetine and bupropion. Start sertraline to help with anxiety. She has taken zoloft before. Follow up with OBGYN. Continue services as scheduled. Labs completed recently. May self-administer medications or be administered own oral medications per [facility] protocols. Provided informed consent with understanding of side effects, adverse effects, risks and benefits as well as alternative treatments as previously discussed and with the above recommended medications & other aspects of the treatment program. Agrees to return sooner if symptoms worsen or suicidal or homicidal ideations occur. 08/27/2023 Nutritional counseling (ICD-10 - Z71.3) 07/07/2023 Screening for metabolic disorder (ICD-10 - Z13.228) 07/07/2023 Screening for thyroid disorder (ICD-10 - Z13.29) 07/07/2023 Screening for hyperlipidemia (ICD-10 - Z13.220) 07/07/2023 Nutritional counseling (ICD-10 - Z71.3) 07/06/2023 Other Reasons, potential benefits, potential risks, interactions and side effects of all medications were discussed. The Patient/Guardian asked appropriate questions, appeared to understand the answers, and decided to accept the treatment and continue being followed. Alternatives and expected course without treatment were reviewed. The Patient/Guardian is aware of the need to contact the office or return for an earlier appointment if any problems or concerns arise. May also contact the 24-hour crisis hotline ([facility]), refer to the closest emergency room or call 911 if new symptoms arise of existing symptoms worsen. The Patient/Guardian is aware that this would apply to symptoms like: suicidal ideation, homicidal ideation, high risk behaviors, manic symptoms, psychotic symptoms, physical symptoms, or any other symptoms that may be dangerous to self or others. Greater than 50% of time spent on coordination and counseling where psychopharmacology as well as psychotherapeutic interventions were discussed along with review of treatments in the past. Education provided concerning need for adequate hydration. Patient/Guardian verbalized understanding of education, treatment plan and follow up. This session was completed telephonically with client/parental/guard oneyda consent: Unable to determine movement status, assess appearance, affect, AIMS, or vital signs. Plan Of Treatment Pending Test Test Name Order Date Vitamin B12* 09/17/2021 TSH* 09/17/2021 Vitamin D, 25-Hydroxy* 09/17/2021 CMP13 09/17/2021 Lipid Panel* 09/17/2021 Insurance Providers Payer Name Payer Address Payer Phone Subscriber Number Group Number Insured Name Patient Relationship to Insured Coverage Start Date Coverage End Date [employer] [address] [place] [address] [id number] Vanda Gage Self - patient is the insured 2 [employer] [address] [place] [phone] [id number] Vanda Gage Self - patient is the insured 2 Medical (General) History Medical History History ICD Code depression anxiety - Has 2 other children. Surgical History Surgery Date(Month/Year) Hospitalization History Reason Date(Month/Year)
--- OUTSIDE RECORDS SUMMARY | 2024-04-08 13:57 | XMS_ITS ---
Author Organization [facility] Address [address] [place] [address] Care Team Providers Care Human Projectile Name Role Phone Nadya Morris Primary Care Provider Jessa Noriega Unavailable [phone] Rita Blackburn Unavailable [phone] Allergies No Known Allergies REASON FOR VISIT 2 Month Psych F/U & Med Refill Medications Medication SIG (Take, Route, Frequency, Duration) Notes Start Date End Date Status FLUoxetine HCl 20 MG 3 capsules Orally Once a day for 30 days Not-Taking buPROPion HCl ER (XL) 150 MG 1 tablet in the morning Orally Once a day for 30 days 07/06/2023 Not-Taking Active Ergocalciferol 1.25 MG (20831 UT) 1 capsule Orally once weekly for 60 days 07/08/2023 03/03/2024 Active Sertraline HCl 50 MG 1 tablet [...] Tobacco use: Nonsmoker Section Notes: Social smoker Vital Signs BMI 40.99 kg/m2 08/27/2023 Oximetry 99 % 08/27/2023 Weight 231.4 lbs 08/27/2023 Height 63.00 in 08/27/2023 Blood pressure systolic 110 mm Hg 08/27/19 24 Blood pressure diastolic 60 mm Hg 024 Heart Rate 66 /min 08/27/2023 Temperature 97.3 degrees Fahrenheit 08/27/19 24 Respiratory Rate 16 /min 08/27/2023 Encounters Encounter Location Date Provider Diagnosis [address] [place] [address] 08/27/2023 Rita Blackburn Depression, unspecified depression type F32.9 ; Generalized anxiety disorder F41.1 and Nutritional counseling Z71.3 Assessments Encounter Date Diagnosis (ICD Code) Assessment Notes Treatment Notes Treatment Clinical Notes Section Notes 08/27/2023 Depression, unspecified depression type (ICD-10 - F32.9) 08/27/2023 Generalized anxiety disorder (ICD-10 - F41.1) D/C fluoxetine and bupropion. Start sertraline to help with anxiety. She has taken zoloft before. Follow up with OBGYN. Continue services as scheduled. Labs completed recently. May self-administer medications or be administered own oral medications per [facility] protocols. Provided informed consent with understanding of side effects, adverse effects, risks and benefits as well as alternative treatments as previously discussed and with the above recommended medications & other aspects of the treatment program. Agrees to return sooner if symptoms worsen or suicidal or homicidal ideations occur. 08/27/2023 Nutritional counseling (ICD-10 - Z71.3) Plan Of Treatment Medication Medication Name Sig Start Date Stop Date Notes Sertraline HCl 50 MG 1 tablet Orally Onc e a day for 30 days 08/27/2023 Treatment Notes Assessment Notes Generalized anxiety disorder D/C fluoxetine and bupropion. Start sertraline to help with anxiety. She has taken zoloft before. Follow up with OBGYN. Continue services as scheduled. Labs completed recently. May self-administer medications or be administered own oral medications per [facility] protocols. Provided informed consent with understanding of side effects, adverse effects, risks and benefits as well as alternative treatments as previously discussed and with the above recommended medications & other aspects of the treatment program. Agrees to return sooner if symptoms worsen or suicidal or homicidal ideations occur. Next Appt Details Follow Up: 4 Weeks, Reason: Medication Management - Jessa Noriega patient Progress Notes * MEANS, JessicaDOB:1990 (33 yo F)Acc No.[id number]:08/27/2023 Patient: Vanda GAONA Provider: Mariza Blackburn DNP, HNP-, MICHELLE :1990 A ge:33 Y S ex:Female Date:08/27/2023 Address: [address] 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 Was hospitalized N o. D epression Screening: PHQ-9 L ittle interest or pleasure in doing things?Nearly every day F eeling down, depressed, or hopeless N early every day T rouble falling or staying asleep, or sleeping too much N early every day F eeling tired or having little energy N early every day P oor appetite or overeating M ore than half the days F eeling bad about yourself or that you are a failure, or have let yourself or your family down S everal T rouble concentrating on things, such as reading the newspaper or watching television S ever M oving or speaking so slowly that other people could have noticed; or the opposite, being so fidgety or restless that you have been moving around a lot more than usual N ot at all T houghts that you would be better off or of hurting yourself in some way N ot at all T otal Score 1 6 I nterpretation M oderately Severe Depression Intervention D epression Screening Findings P ositive F ollow-Up for Depression N o Referral necessary, patient involved in behavioral health treatment . S creening: [place] Suicide Severity Rating Scale (LF) D o you want to initiate with S creener form 1 . Wish to be : Have you wished you were or wished you could go to sleep and not wake up? N o 2 . Suicidal Thoughts: Have you actually had any thoughts of killing yourself? N o 6 . Suicide Behaviour: Have you ever done anything,started to do anything, or prepared to end your life? N o I nterpretation: L ow Risk C SSRS Interpretation and Follow Up Plan: CSSRS Interpretation and Follow Up Plan. CSSRS Interpretation and Follow Up Plan C SSRS Screen documented using SF Y es M oderate or High risk requires selection of a follow up plan C SSRS No/Low: intervention not needed at this time [facility]: Action Plans for Clinical Quality Measures: C ervical Cancer Screening: N ot addressed during this visit. See notes for details. pt. is H IV Screening: N ot addressed during this visit. See notes for details. pt. is . P sych F/U: Patient presents for psychiatric follow-up visit. Changes since last visit?: P alex. Stopped taking medication. . Goals: F inding medication to help with doubt and overthinking. . Coping skills? d eveloping. Effectiveness of medications: Y es, patient reports they are effective. Medication Adherence: R eports stopping medication(s). Side effects to medications?: D enies side effects to medications. Sleep: S tates it is hard to fall asleep and stay asleep. Naps in the daytime. . Appetite L ow appetite in the daytime, but will eat at night. . Depression (10 = most depressed) . Anxiety (10 = most anxious) . Anger/Irritability (10 is highest): , states it common in her . . Suicidal ideation: D enies suicidal ideation.. Homicidal ideation: D enies homicidal ideation.. Hallucinations D enies hallucinations. Medical concerns or hospitalizations? P alex- Sees OB on wednesday. LMP- July 11. . Therapy? N one. * ROS: P sych ROS: Constitutional D enies. E yes D enies. E ars/Nose/Mouth/Throat D enies. R espiratory D enies. A llergic/Immunologic D enies.?Cardiovascular D enies. G I D enies. G U D enies. M usculoskeletal D enies. N eurological D enies. I ntegumentary D enies. E ndocrine D enies.?Hematological/Lymphatic D enies. P sych A nxiety. * Medical History: * Surgical History: D enies Past Surgical History * Hospitalization/Major Diagno stic Procedure: D enies Past Hospitalization * Family History: F ather: . M other: alive. 2 brother(s) , 1 sister(s) - healthy. 2 son(s) - healthy. . father- heart attack maternal grandfather- kidney disease mother- depression, anxiety maternal grandmother- depression, anxiety. * Social History: P rimary Social History: L iving Arrangement L iving Arrangement: I ndependent Living I s this a supportive environment? 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 T obacco Use: D ont use, Tobacco Use/Smoking A re you a f ormer smoker H ow long has it been since you last smoked??6-12 months Tobacco Control (Standard) T obacco use: N onsmoker M iscellaneous: M ethod of learning P referred method of learning: D iscussion S ocial smoker. * Medications: T akingPrenatal Ergocalciferol 1.25 MG (98552 UT) Capsule 1 capsule Orally once weekly , stop date 03/03/2024Taking Taking Ergocalciferol 1.25 MG (26553 UT) Capsule 1 capsule Orally once weekly , stop date 03/03/2024Not-TakingFLUoxetine HCl 20 MG Capsule 3 capsules Orally Once a day buPROPion HCl ER (XL) 150 MG Tablet Extended Release 24 Hour 1 tablet in the morning Orally Once a day Medication List reviewed and reconciled with the patientNot-Taking FLUoxetine HCl 20 MG Capsule 3 capsules Orally Once a day Not-Taking buPROPion HCl ER (XL) 150 MG Tablet Extended Release 24 Hour 1 tablet in the morning Orally Once a day Medication List reviewed and reconciled with the patient * Allergies: N .K.D.A.no[Allergies Verified] Objective: * Vitals: I nitials: kjs, Wt:231.4, Ht:63.00, BMI:40.99, BP:110/60, HR:66, Oxygen sat %:99, Temp:97.3, RR:16, LMP: , Pain scale:0. * Examination: M ental Status Exam: SENSORIUM AND COGNITION Alert, Oriented to Person, Oriented to Place, Oriented to Time, Oriented to Situation. ATTENTION AND CONCENTRATION No deficits. ATTITUDE AND BEHAVIOR Cooperative, Receptive. MEMORY Immediate, Recent, Remote. MOOD D epressed. SPEECH QUANTITY Appropriate. SPEECH QUALITY Appropriate volume. THOUGHT PROCESS Coherent and goal directed. THOUGHT CONTENT Appropriate - WNL. MOTOR ACTIVITY D enies abnormal movements or tics , Phone interview.. SUICIDAL IDEATION Denies suicidal ideation. HOMICIDAL IDEATION Denies homicidal ideation. HALLUCINATIONS Denies hallucinations. INSIGHT G ood. JUDGMENT F air. FUND OF KNOWLEDGE G ood. ABILITY TO PARTICIPATE IN TREATMENT M oderate. WILLINGNESS TO PARTICIPATE IN TREATMENT M oderate. E xam limited due to telephone encounter. Assessment: * Assessment: 1. D epression, unspecified depression type - F32.9 (Primary) 2 . G eneralized anxiety disorder - F41.1 3 . N utritional counseling - Z71.3 Plan: * Treatment: * Recommended Wellness and Pre vention Guidelines: * S tatus A lert L ast Done N ext Due A ction Taken N ONCOMPLIANT C ervical cancer screening - 0 08/27/2023 - N ONCOMPLIANT D epression followup 0 07/07/2023 0 08/27/2023 - N ONCOMPLIANT H IV screening - 0 08/27/2023 - * Procedure Codes: 3 008F BODY MASS INDEX [id number] MEDICAL NUTRITION, INDIV, [id number] TOBACCO NON-USER * Preventive Medicine: Counseling: C are goal follow-up plan: BMI management provided Y es Above Normal BMI Follow-up L ifestyle education regarding diet * Follow Up: 4 Weeks (Reason: Medication Management - Jessa Noriega patient) * * Sign off status: Completed true * Provider: Mariza Blackburn DNP, PMHNP-, WOOD TOOL MAKER Date: 0 08/27/2023 Generated for Printing/Faxing/eTransmitting on: 0 04/08/2024 01:57 PM 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 CAR 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 History and Physical Notes * HPI (History of Present Illness) Category Sub-Category Detail Notes Category Not es Interim History Was hospitalized No Emergency room visit Yes Depression Screening PHQ-9 Little inte rest or pleasure in doing things: Nearly every day Feeling down, depressed, or hopeless: Ne radha every day Trouble falling or staying asleep, or sl eeping too much: Nearly every day Feeling tired or having little energy: N early every day Poor appetite or overeating: More than h chcf the days Feeling bad about yourself o r that you are a failure, or have let yourself or your family down: Several days Trouble concentrating on thi ngs, such as reading the newspaper or watching television: Several days Moving or speaking so slowly that other people could have noticed; or the opposite, being so fidgety or restless that you have been moving around a lot more than usual: Not at all Thoughts that you would be b benito off or of hurting yourself in some way: Not at all Total Score: 16 Interpretation: Moderately Severe Depres krystle Intervention Depression Screening Findings: P ositive Follow-Up for Depression: No Referral necessary, patient involved in behavioral health treatment . Psych F/U Changes since last visit?: . Stop ped taking medication. Effectiveness of medications: Yes, patie nt reports they are effective Medication Adherence: Reports stopping m edication(s) Side effects to medications?: Denies melita e effects to medications Goals: Finding medication t o help with doubt and overthinking. Coping skills? developing Sleep: States it is hard to fall asleep and stay asleep. Naps in the daytime. Appetite Low appetite in the daytime, but will eat at night. Depression (10 = most depressed) 7/10 Anxiety (10 = most anxious) 5/10 Anger/Irritability (10 is highest): 8/10 , states it common in her . Suicidal ideation: Denies suicidal idea tion. Homicidal ideation: Denies homicidal nell ation. Hallucinations Denies hallucination s Medical concerns or hospitalizations? Pr egnant- Sees OB on wednesday. LMP- July 11. Therapy? None Screening [place] Suicide Sev erity Rating Scale (LF) Do you want to initiate with: Screener form 1. Wish to be : Have you wished you were or wished you could go to sleep and not wake up?: No 2. Suicidal Thoughts: Have you actually had any thoughts of killing yourself?: No 6. Suicide Behavior Question: Have you ever done anything,started to do anything, or prepared to end your life?: No Interpretation:: Low Risk Do Not Use CSSRS Interpretation and Follow Up Plan CSSRS Interpretation and Follow Up Plan CSSRS Screen documented using SF: Yes Moderate or High risk requir es selection of a follow up plan: CSSRS No/Low: intervention not needed at this time Preventative Health and Wellness follow-up Action Plans for Clinical Quality Measures: Cervical Cancer Screening:: Not addressed during this visit. See notes for details. pt. is . HIV Screening:: Not addresse d during this visit. See notes for details. pt. is Examination Category Sub-Category Detail Notes Category Not es Mental Status Exam SENSORIUM AND COGNITION Alert, Oriented to Person, Oriented to Place, Oriented to Time, Oriented to Situation Exam limited due to telephone encounter ATTENTION AND CONCENTRATION No deficits ATTITUDE AND BEHAVIOR Cooperative, Oil Burner tive MEMORY Immediate, Recent, R emote MOOD Depressed SPEECH QUANTITY Appropriate SPEECH QUALITY Appropriate volume THOUGHT PROCESS Coherent and goal di rected THOUGHT CONTENT Appropriate - WNL MOTOR ACTIVITY Denies abnormal move ments or tics , Phone interview. SUICIDAL IDEATION Denies suicidal idea tion HOMICIDAL IDEATION Denies homicidal nell ation HALLUCINATIONS Denies hallucination s INSIGHT Good JUDGMENT Fair FUND OF KNOWLEDGE Good ABILITY TO PARTICIPATE IN TREATMENT Mode rate WILLINGNESS TO PARTICIPATE IN TREATMENT Moderate
--- OUTSIDE RECORDS SUMMARY | 2024-04-08 13:57 | XMS_ITS ---
Author Organization [facility] Address [address] [place] [address] Care Team Providers Care Resource Conservationist Name Role Phone Nadya Morris Primary Care Provider [phone] Jessa Noriega Unavailable [phone] REASON FOR VISIT 3 Month Psych F/U & Med Refill Social History Sex Assigned At : Social History Observation Description Sex Assigned At Female Encounters Encounter Location Date Provider Diagnosis [address] [address] [place] [address] 11/30/2023 Jessa Noriega Plan Of Treatment No Information Progress Notes * Vanda BURGERDOB:1990 (34 yo F)Acc No.[id number]:11/30/2023 UNLOCKED PROGRESS NOTE Patient: Vanad GAONA Provider: Carrington Noriega, MSN, MANAGER CARE MANAGEMENT, FILBERT GROWER-C :1990 A ge:33 Y S ex:Female Date:11/30/2023 Address:[address], [facility] Pcp:Nadya Morris Subjective: * Chief Complaints: * 1 . 3 Month Psych F/U & Med Refill. * Medical History: Objective: * Vitals: Assessment: Plan: * Treatment: * * Electronic signature of María Noriega , [id number] on 04/08/2024 at 01:56 PM THERAPEUTIC MASSAGE TECHNICIAN Sign off status: Pending * Provider: Carrington Noriega, JERROD, MANAGER CARE MANAGEMENT, FILBERT GROWER-C Date: 1 Generated for Rigoberto shell/Jose Eduardo/Edgar on: 0 04/08/2024 01:56 PM THERAPEUTIC MASSAGE TECHNICIAN
--- OUTSIDE RECORDS SUMMARY | 2024-04-08 13:57 | XMS_ITS | Patient Health Summary ---
Author Organization [facility] Address [address] [address] Care Team Providers Care Sort Line Name Role Phone Unavailable Primary Care Provider Unavailabl e Note from [facility],non-owned Affiliates and Associated Physician Practices is amultiple site organization consisting of ambulatory clinics and hospital sitesin [place], [place], [place] and [place]. This disclosure is being madepursuant to the Care Everywhere program and may not contain all information available regarding this patient. Last updated 17.[facility] Allergies No known active allergies Social History Tobacco Use Types Packs/Day Years Used Date Smoking Tobacco: Never Assessed Estimated Date of Delivery Comme nts Yes 04/17/2024 Based on last me nstrual period of 07/12/2023 Sex and Gender Information Value Date Recorded Sex Assigned at Not on file Gender Identity Not on file Sexual Orientation Not on file Procedures * SONOGRAM - COMPLETE(Performed 12/29/2023) Performed for Multigravida of advanced maternal age in second trimester (HCC), 24 weeks gestation of ([facility]), Encounter for follow-up ultrasound of anatomy ([facility]), Encounter for ultrasound to assess growth ([facility]) * SONOGRAM - COMPLETE(Performed 11/30/2023) Performed for Antepartum multigravida of advanced maternal age (HCC), 20 weeks gestation of ([facility]), Encounter for anatomic survey ([facility]) * SONOGRAM - COMPLETE(Performed 11/01/2023) Performed for Encounter for ultrasound ([facility]), Antepartum multigravida of advanced maternal age (HCC), 15 weeks gestation of ([facility]) Results * SONOGRAM - COMPLETE (12/29/2023 8:31 AM FLORIST) Only the most recent of3 resultswithin the time period is included. Linked Results Indication ======== Incomplete Anatomy Screen Obesity, Class III AMA: Declined Genetics History ====== OB History 3. Para 2 [id number] Maternal Assessment Physical Exam Height 157 cm, 5 ft 2 in. Weight 107 kg, 236 lb. Initial weight 105 kg, 232 lb. BMI 43.17 kg/m . Initial BMI 42.43 kg/m . Weight gain 2 kg, 4 lb Method ====== Transabdominal ultrasound ========= Card . Number of fetuses: 1 Dating ====== Date Details Gest. age HAL LMP 07/12/2023 24 w + 2 d 04/17/2024 U/S 12/29/2023 based upon AC, BPD, Femur, HC 25 w + 3 d 04/09/2024 Assigned dating based on the LMP, selected on 12/29/2023 24 w + 2 d 04/17/2024 General Evaluation Cardiac activity present. FHR 152 bpm. Presentation: cephalic Placenta: Placental site: anterior Amniotic fluid: Amount of AF: normal. MVP 6.2 cm Biometry BPD 60.1 mm 24w 4d 51% Hadlock HC 233.5 mm 25w 3d 72% Hadlock AC 216.0 mm 26w 1d 90% Hadlock Femur 47.2 mm 25w 5d 81% Hadlock Humerus 45.2 mm 26w 6d 97% Alexys HC / AC 1.08 Weight Calculation: EFW 855 g 95% Hadlock EFW (lb,oz) 1 lb 14 oz EFW by Hadlock (EON-HY-LY-FL) Head / Face / Neck Biometry: Cephalic index 0.70 <1% Nicolaides CM 5.6 mm 37% Nicolaides accelerated Growth Overview Exam date GA BPD (mm) HC (mm) AC (mm) FL (mm) HL (mm) EFW (g) 12/29/2023 24w 2d 60.1 51% 233.5 72% 216 90% 47.2 81% 45.2 97% 855 95% Anatomy The following structures appear normal: Head / Neck Lateral ventricles. Cisterna magna. Heart / Thorax 4-chamber view. RVOT view. 4-kyvvba-cbhyjdr view. Situs. Aortic arch view. Bicaval view. Ductal arch view. Interventricular septum. Great vessels. Abdomen Cord insertion. Stomach. Kidneys. Bladder. Spine Cervical spine. Thoracic spine. Lumbar spine. Sacral spine. Extremities / Skeleton Arms. Hands. Left hand. The following structures were documented previously: Head / Neck Cranium. Choroid plexus. Midline falx. Cavum septi pellucidi. Cerebellum. Face Lips. Profile. Nose. Heart / Thorax LVOT view. 3-vessel view. Right lung. Left lung. Diaphragm. Abdomen Genitals. Extremities / Skeleton Right hand. Legs. Feet. Impression ========= Single, live, intrauterine at 24w 2d size appears accelerated - EFW is at the 95th percentile at this early gestational age. Amniotic fluid volume: normal No major malformations were seen within the limitations of ultrasound Complete anatomic survey Today's findings, while reassuring, do not entirely exclude the patient's age related risk of aneuploidy. Follow-up ======== Growth US in 4-6 weeks Correlate growth with maternal glucose screening. Coding ====== Procedures 36165: US Preg Uterus Follow Up [employer] PACS Anatomical Region Laterality Modality Other 12/29/2023 8:31 AM FLORIST Yaniv Calderón MD [facility] ORDERABLES
--- NOTE | 2024-04-08 14:08 | LDADM ---
This patient, Vanda Gage, was admitted to Labor/Delivery/Recovery 107 on 04/08/24 at 13:34. Plans for labor, pain management and were discussed with patient. Patient/family oriented to hospital policies and general routines including ID bracelet, bed and alarms, visiting hours, pain management, procedures, bathroom and other care routines, personal items, smoking policy, room service/diet and guest tray routines, security routines, and visiting hours. Patient/Family are encouraged to report perceived risks to care and to ask questions if they do not understand what they are told or what they should do. See [facility] for further documentation.
--- NOTE | 2024-04-08 14:10 | P.HP_ITS ---
H&P: HPI History of Present Illness Date/Time: 04/08/24 14:10 Chief Complaint: Leaking of fluid Narrative: She is a 34 y/o at 38 weeks admitted for SROM clear at 130. Cervix . Labs reviewed. GBS neg. Review of Systems Review of Systems: All systems reviewed & are unremarkable except as noted in HPI and below Constitutional: Constitutional: Reports no additional constitutional complaints and Denies headache(s) Eyes: Eyes: Denies spots in vision ENT: Reports system reviewed and no additional complaints, except as documented and Denies headache(s) Cardiovascular: Cardiovascular: Denies chest pain and Denies dyspnea Respiratory: Respiratory: Denies dyspnea Gastrointestinal: Gastrointestinal: Reports no additional gastrointestinal complaints Genitourinary: Genitourinary: Reports amenorrhea Musculoskeletal: Musculoskeletal: Reports no additional musculoskeletal complaints Integumentary/Breasts: Skin/Breast: Denies breast mass and Denies rash Neurologic: Denies headache(s) Psychiatric: Psychiatric: Reports no additional psychiatric complaints [facility] Past Medical History Medical History Abnormal glucose tolerance in Bipolar disorder Depression No pertinent past medical history Threatened Surgical History Surgical History No pertinent past surgical history Family History Family History Father Family history of heart disease in male family member before age 55, Onset Age: 56 Patient's father is Grandparent Kidney disease Social History Social History Smoking status: Former smoker Tobacco type: cigarettes Second hand tobacco smoke exposure: No Smoking end date: 05/14/21 Alcohol intake: never Substance use: former Substance use type: marijuana Last use: 05/14/2021 Do You Feel Safe in your Home?: Yes Lack of Transportation: No Lack of Food: Sometimes True Current Housing: I Have Housing Concerned About Future Housing: No Difficulty Paying Gas/Electric Bills: YES Difficulty Paying for Meds: No Currently Unemployed: YES Education: Associate Degree Difficulty w/ Childcare or Family Care: No Living arrangements: other Additional living arrangements comments: now engaged Occupation/Education: occupation 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 Gender identity (if verbalized by the patient): Female Sexual Orientation (if Verbalized by the Patient): Straight or Heterosexual Spiritual care concerns: No Meds Home Medications and Allergies Home Medications ?Medication ?Instructions ?Recorded ?Confirmed ?Type vit no.95-ferrous 1 tablet PO DAILY 09/29/23 04/06/24 History fumarate 28 mg-folic acid 800 mcg tablet () albuterol sulfate 90 mcg/actuation 2 puff inhalation QID PRN 02/06/24 04/06/24 Rx aerosol inhaler (Ventolin HFA) shortness of breath or wheezing #6.7 grams Allergies Allergy/AdvReac Type Severity Reaction Status Date / Time No Known Allergies Allergy Verified 04/06/24 13:56 Vital Signs Vital Signs - 24 hr 04/08/24 14:01 Pulse Rate 96 Blood Pressure 131/53 L Exam Const: General: no acute distress Eyes: General: appearance normal, both eyes and all related structures Resp: Effort & Inspection: normal respiratory effort Cardio: Rate: regular rate GI: Other: Gravid no fundal tenderness no right upper quadrant pain Skin: General skin exam: no rashes or lesions noted Neuro: Cognition (Neuro): normal cognition Extrem: General: normal to inspection Psych: Mental Status: mental status grossly normal Assessment and Plan Assessment and plan (1) Spontaneous rupture of membranes: Status: Acute Assessment and Plan: 1. Admit 2. Expectant management, possible pitocin augmentation.
[2024-04-08 14:14] LABS: OBXCEM ROM Plus Positive (Negative)
[2024-04-08 14:24] LABS: Basophils Percent Auto 0.3 % (0.2-1.2); Eosinophils Absolute Auto 0.1 K/mm3 (0-0.3); Eosinophils Percent Auto 0.5 % (0-4.4); Hematocrit 29.6 % (37.0-47.0); Hemoglobin 9.4 g/dL (12.0-15.0); Immature Granulocyte Absolute 0.04 K/mm3 (0.00-0.031); Immature Granulocyte Percent A 0.4 % (0-0.5); Lymphocytes Absolute Auto 2.31 K/mm3 (0.9-3.2); Mean Corpuscular HGB Conc 31.8 g/dl (32-36); Mean Corpuscular Hemoglobin 26.8 pg (26-34); Mean Corpuscular Volume 84.3 fl (80-100); Monocytes Absolute Auto 0.6 K/mm3 (0.1-0.6); Monocytes Percent Auto 5.9 % (2.6-8.5); Neutrophils Percent Auto 69.9 % (45.5-73.1); Platelet Count Result 232 k/mm3 (150-375); Red Blood Count 3.51 M/mm3 (4.2-5.4); Red Cell Distribution Width 14.5 % (11.5-14.5)
[2024-04-08 15:04] LABS: Syphilis IgG/IgM Antibody Negative (Negative)
[2024-04-08 15:17] LABS: HIV 1/2 Ab P24 Ag Result Negative (Negative)
[2024-04-08] MEDS: OXYTOCIN 30 UNITS/NS 500 ML 30 UNITS/500 ML BAG IV CONT (16:24)
[2024-04-08] MEDS: LACTATED RINGERS 1,000 ML 125 ML IV CONT ×2 (16:24→19:23)
--- NOTE | 2024-04-08 16:51 | P.PNAN_ITS ---
Anes - Eval Pre Procedure Procedure: Labor Pain Management Date/Time: 04/08/24 16:51 Surgeon: Kavin Preop Diagnosis: pain during labor Pre Op Diagnosis: Labor Patient Data Age: 34 Gender: F Height: 1.59 m Weight: 111 kg Last Vital Signs Temp 97.8 F 04/08/24 16:27 Pulse 86 04/08/24 16:31 BP 118/54 L 04/08/24 16:31 O2 Del Method Room Air 04/08/24 14:08 Allergies Allergy/AdvReac Type Severity Reaction Status Date / Time No Known Allergies Allergy Verified 04/06/24 13:56 Home Medications ?Medication ?Instructions ?Recorded ?Confirmed ?Type vit no.95-ferrous 1 tablet PO DAILY 09/29/23 04/06/24 History fumarate 28 mg-folic acid 800 mcg tablet () albuterol sulfate 90 mcg/actuation 2 puff inhalation QID PRN 02/06/24 04/06/24 Rx aerosol inhaler (Ventolin HFA) shortness of breath or wheezing #6.7 grams Laboratory Tests 04/08/24 04/08/24 14:08 14:17 WBC 10.0 K/mm3 (4.5-10.0) RBC 3.51 L M/mm3 (4.2-5.4) Hgb 9.4 L g/dL (12.0-15.0) Hct 29.6 L % (37.0-47.0) MCV 84.3 fl (80-100) MCH 26.8 pg (26-34) MCHC 31.8 L g/dl (32-36) RDW 14.5 % (11.5-14.5) Plt Count 232 k/mm3 (150-375) MPV 12.0 H fl (7.4-10.4) Immature Gran % (Auto) 0.4 % (0-0.5) Neut % (Auto) 69.9 % (45.5-73.1) Lymph % (Auto) 23.0 % (18.3-44.2) [place] % (Auto) 5.9 % (2.6-8.5) Eos % (Auto) 0.5 % (0-4.4) Baso % (Auto) 0.3 % (0.2-1.2) Lymph # (Auto) 2.31 K/mm3 (0.9-3.2) [place] # (Auto) 0.6 K/mm3 (0.1-0.6) Eos # (Auto) 0.1 K/mm3 (0-0.3) Baso # (Auto) 0.0 K/mm3 (0.0-0.1) Abs Immat Gran (auto) 0.04 H K/mm3 (0.00-0.031) Absolute Neuts (auto) 7.0 H K/mm3 (1.3-6.7) Absolute Nucleated RBC 0.000 K/mm3 (0.0-0.012) Nucleated RBC % 0.0 % (0.0-0.2) Membranes Rupture Rom plus positive (Negative) Syphilis IgG/IgM Ab Negative (Negative) HIV 1&2 Ab/P24 Ag 4thGn Negative (Negative) Blood Type O Positive Antibody Screen Negative ECG: SR 2023 ECG Patient hx anesthesia problems: none Family hx anesthesia problems: none Results Review: All pre-operative results and documents have been reviewed as part of the pre- operative evaluation. [facility] Past Medical History Medical History (Updated 04/08/24 @ 16:55 by Elena Cuadra CRNA) Pain during labor Abnormal glucose tolerance in Bipolar disorder pt off meds during . Depression No pertinent past medical history Threatened Surgical History Surgical History No pertinent past surgical history Family History Family History Father Family history of heart disease in male family member before age 55, Onset Age: 56 Patient's father is Grandparent Kidney disease Social History Social History Smoking status: Never smoker Tobacco type: cigarettes Second hand tobacco smoke exposure: No Smoking end date: 05/14/21 Alcohol intake: never Substance use: former Substance use type: marijuana Last use: 05/14/2021 Do You Feel Safe in your Home?: Yes Lack of Transportation: No Lack of Food: Never True Current Housing: I Have Housing Concerned About Future Housing: No Difficulty Paying Gas/Electric Bills: No Difficulty Paying for Meds: No Currently Unemployed: No Education: Associate Degree Difficulty w/ Childcare or Family Care: No Living arrangements: other Additional living arrangements comments: now engaged Occupation/Education: occupation 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
[2024-04-08] MEDS: fentaNYL CITRATE INJ (*CRX) 100 MCG/2 ML VIAL IV PUSH (18:44)
[2024-04-08] MEDS: FAMOTIDINE 20 MG/2 ML VIAL IV PUSH (21:03)
[2024-04-08] MEDS: diphenhydrAMINE HCl INJ 50 MG/ML VIAL 25 MG IV PUSH (22:10)
[2024-04-09] VITALS (32 sets, daily range): BP systolic 70–134; BP diastolic 45–85; PULSE 85–136; RESP 16–18; TEMP 36.6–37; O2SAT 98–100
--- NOTE | 2024-04-09 01:25 | PM.OBPRVD ---
OB - Vaginal Delivery Note Procedure Delivery date: 04/09/24 Delivery monitor: External FHT and Internal Uterine Route of delivery: Episiotomy description: None Laceration Description: None Quantitative Blood Loss (ml): 150 Anesthesia type: Epidural Complications: No immediate complications Narrative: She was admitted for SROM. Labor was augmented with Pitocin. She received epidural on request. She progressed to active labor and then complete. Infants head delivered and nose and mouth suctioned at perineum, with gentle traction, the rest of infant delivered and placed on maternal abdomen. Infant vigorously crying. Delayed cord clamping until cord apulsatile, 90 seconds. Cord doubly clamped and cut. Pitocin started. Placenta delivered spontaneously and intact. Trailing membranes in lower uterine segment grasped with ring forceps and a small amount of membranes with sweeping of lower uterine segment. Uterine tone good. Baby Date of : 04/09/24 Time of : 01:01 Gestational Age by Date: 38 Infant gender: Female presentation: vertex position: Left Occiput Anterior Placenta delivery description: Spontaneous Cord Vessel Description: 3 Vessels, Clamped/Cut and Delayed Cord Clamping score one minute: 8 score five minutes: 9
[2024-04-09] MEDS: OXYTOCIN 30 UNITS/NS 500 ML 30 UNITS/500 ML BAG 125 UNITS IV CONT (02:04)
[2024-04-09] MEDS: IBUPROFEN 600 MG TABLET PO ×4 (03:00→22:50)
--- NOTE | 2024-04-09 04:30 | OBPPTRN ---
Patient transferred to post room #291 via w/c. Support person present. Oriented to unit, room, information board, rooming in, admission packet and security measures. Patient verbalizes understanding.
[2024-04-09] MEDS: POLYSACCHARIDE IRON COMPLEX 150 MG CAPSULE PO ×2 (07:51→19:30)
[2024-04-09] MEDS: DOCUSATE SODIUM 100 MG CAPSULE PO (07:51)
[2024-04-09] MEDS: MULTIVIT/MIN/PREN/FOL AC/IRON TABLET 1 TAB PO (07:51)
--- NOTE | 2024-04-09 16:08 | WPDANLDPN2 ---
Anes-Prog Note L&D Date/Time: 04/09/24 16:08 Comfortable throughout: labor and delivery Neuraxial method: epidural Epidural/Spinal procedure site: tender (pt verbalizes severe pain to her lower back. states has been using heating pad. encouraged ibuprofen for pain) Neuro status: Neuro function grossly intact. Cardiovascular status: normal Respiratory status: normal Airway patency: baseline Mental status: baseline Post-Op hydration status: normal Vital Signs: Last Vital Signs Temp 97.8 F 04/09/24 07:50 Pulse 88 04/09/24 07:50 Resp 16 04/09/24 07:50 BP 125/79 04/09/24 07:50 Pulse Ox 98 04/09/24 04:40 O2 Del Method Room Air 04/09/24 04:40 Pain score (VAS): 5 I/O: Intake & Output 04/09/24 04/09/24 04/09/24 07:59 15:59 23:59 Intake Total 1300 Output Total 625 Balance 675 Patient feedback: Patient satisfied with anesthetic care.
[2024-04-09] MEDS: ACETAMINOPHEN 325 MG TABLET 650 MG PO (19:30)
[2024-04-10] MEDS: ACETAMINOPHEN 325 MG TABLET 650 MG PO (02:00)
[2024-04-10 06:02] LABS: Hematocrit 26.3 % (37.0-47.0); Hemoglobin 8.3 g/dL (12.0-15.0)
[2024-04-10 08:55] VITALS: BP 112/54; PULSE 87; RESP 18; TEMP 36.7; O2SAT 97
[2024-04-10] MEDS: DOCUSATE SODIUM 100 MG CAPSULE PO (09:01)
[2024-04-10] MEDS: MULTIVIT/MIN/PREN/FOL AC/IRON TABLET 1 TAB PO (09:01)
[2024-04-10] MEDS: POLYSACCHARIDE IRON COMPLEX 150 MG CAPSULE PO (09:01)
--- NOTE | 2024-04-10 10:30 | PC.NURSE ---
Consulted with mother concerning needs and she shared her ability to independently latch infant optimally without pain (just has some latch on tenderness). Mother is feeding appropriately for growth of and understands stimulating infant to eat if needed. has had appropriate feedings in the last 24 hours meets the outcomes for weight, output, blood sugar and jaundice at this time. Reinforced understanding of milk production, transition of milk, signs of adequate intake, transition of stool, prevention/relief of engorgement, plugged ducts, mastitis, responsive watching for feeding cues, the different methods of stimulating to breastfeed 1-3 hours after the start of the last feeding, community resources, and when to call a provider using the resource of the feeding sheet along with the mom and baby guide. Mother voiced understanding of the information shared, is confident to continue effectively her at home, when to call for assistance, denies any additional assistance or education at this time. Reported to the Primary RN.
[2024-04-10] MEDS: IBUPROFEN 600 MG TABLET PO (13:25)
--- NOTE | 2024-04-10 13:31 | P.DS_ITS ---
DS: Admitting Diagnosis Discharge Date 04/10/2024 Admitting Diagnosis OB - DS: Summary OB Procedures : None OB Procedures Intrapartum: Spontaneous Vag Delivery OB Procedures: : None Peripartum Data Laceration Description: None Episiotomy description: None Time Spent with Patient Time attestation: Total time spent providing and/or coordinating discharge services: DS: Data Data Completed and Pending Labs on day of discharge: Labs from last 24 hours 04/10/24 04:56 Hgb 8.3 L Hct 26.3 L Discharge Plan Discharge Discharging Clinician: Yaniv Calderón Patient Disposition: Home, Self-Care Activity: as tolerated Diet: as tolerated Patient Instructions: Antibiotic Form Patient Language: [place] Stand Alone Forms: General Discharge Information Follow-up/Referrals: Yaniv Calderón MD [Physician] - 4 Weeks Discharge Medications: New ibuprofen 600 mg Tablet 600 mg PO Q6H PRN (Reason: Cramping) Qty: 30 0RF Continued albuterol sulfate [Ventolin HFA] 90 mcg/actuation HFA aerosol inhaler 2 puff inhalation QID PRN (Reason: shortness of breath or wheezing) Qty: 6.7 0RF PNV cmb#95-ferrous fumarate-FA [] 28 mg iron- 800 mcg Tablet 1 tablet PO DAILY Date of admission: 04/08/24 13:34 Primary Care Provider: UNKNOWN,DOCTOR Admitting Provider: Yaniv Calderón Attending physician on admission: Yaniv Calderón Condition: Stable
[2024-04-11 10:26] VITALS: PULSE 90; RESP 18; TEMP 36.6; O2SAT 100
== END 2024-04-10 14:30 | disposition home or self-care (01) | DRG 560 ==
LOC: ANHLDR 18:09 → ANHOB2 04-09 05:30
PROVIDERS: Admitting Provider Obstetrics & Gynecology; Visit Provider Obstetrics & Gynecology
DX: O80 Encounter for full-term uncomplicated delivery (principal); Z3A.38 38 weeks gestation of pregnancy; Z37.0 Single live birth; Z87.891 Personal history of nicotine dependence
CPT/HCPCS: 36415; 84112; 85014; 85018; 85025; 86593; 86703; 86850; 86900; 86901; A9270; G0432; J1200; J2590; J2795; J3010; J7120